=== PATIENT | male | born 1945 | race Caucasian/White ===

== ENCOUNTER → 2017-12-22 08:50 | Outpatient (CLI) | payer MEDICARE, SELFPAY ==
[2017-12-22 11:16] LABS: Creatinine, Serum 0.87 mg/dL (0.70-1.30); EST Glomerular Filtration Rate 92 mL/min (>60); Est Glom Filt Rate - Afr Amer 111 mL/min (>60); T4 Total, Thyroxin 7.7 ug/dL (4.5-12.1); Thyroid Stim Hormone (TSH) 0.61 uIU/mL (0.358-3.74)
== END ==
PROVIDERS: Family Provider Family Medicine; PCP Family Medicine; Visit Provider Internal Medicine Cardiovascular Disease
DX: E03.9 Hypothyroidism, unspecified (principal); I10 Essential (primary) hypertension
CPT/HCPCS: 36415; 82565; 84436; 84443

== ENCOUNTER → 2018-03-16 08:51 | Outpatient (CLI) | payer MEDICARE, SELFPAY ==
[2018-03-16 10:56] LABS: AST(SGOT) 12 U/L (15-37); Alanine Aminotransfer ALT/SGPT 20 U/L (16-61); Albumin, Serum 3.7 g/dL (3.2-5.0); Alkaline Phosphatase 70 U/L (45-117); Bilirubin, Direct 0.17 mg/dL (0.00-0.30); Cholesterol 105 mg/dL (200); Globulin 3.4 g/dL (2.2-4.2); High Density Lipoprotein 37 mg/dL; Protein, Total 7.1 g/dL (6.4-8.2); Triglycerides 67 mg/dL; Very Low Density Lipoprotein 13 mg/dL (5-40)
== END ==
PROVIDERS: Family Provider Family Medicine; PCP Family Medicine; Visit Provider Internal Medicine Cardiovascular Disease
DX: E78.5 Hyperlipidemia, unspecified (principal); Z79.899 Other long term (current) drug therapy
CPT/HCPCS: 36415; 80061; 80076

== ENCOUNTER 2018-05-13 18:52 | Emergency (ER) | payer MEDICARE, SELFPAY ==
[2018-05-13 18:53] VITALS: BP 148/83; PULSE 81; RESP 24; TEMP 36.8; O2SAT 95; BMI 39.5
--- NOTE | 2018-05-13 19:04 | EKG12_ITS ---
Test Reason : SOB Blood Pressure : / mmHG Vent. Rate : 084 BPM Atrial Rate : 078 BPM P-R Int : 000 ms QRS Dur : 084 ms QT Int : 370 ms P-R-T Axes : 000 -40 076 degrees QTc Int : 437 ms Atrial fibrillation Left axis deviation Low voltage QRS Abnormal ECG Confirmed by MARYANN BHATT, CHRISTINA ([id number]), features editor MANPREET PENA ([id number]) on 05/16/2018 3:55:32 PM Referred By: Emanuel Galvez Confirmed By:CHRISTINA WOLF MD
[2018-05-13 19:06] VITALS: BP 177/84; PULSE 88; RESP 15; O2SAT 97
--- NOTE | 2018-05-13 19:06 | ED.VISSUMM ---
- ER Visit Summary Date of Service: 05/13/18 Chief Complaint: [] Cough and shortness of breath History of Present Illness: The patient is a 73 M complaining of shortness of breath for last 2 and half days with a cough with mucus. Positive wheezing. He has been using Coricidin oral medication. No home oxygen. He does smoke. No history of COPD. He is on Lasix for history of CHF remotely. No recent weight gain with fluids. Physical Examination: [] Vital signs reviewed General: Well-nourished well-developed Head: Normocephalic atraumatic Eyes: Pupils equal round and reactive to light extraocular movements intact ENT: TMs clear no hemotympanum no trauma Neck: Nontender full range of motion Cardiovascular: Regular rate rhythm no murmurs normal S1-S2 Respiratory: Diffuse wheezes throughout all lung love with mucoid cough chest nontender Abdomen: Soft nontender nondistended normal bowel sounds no masses Back: Nontender no CVA tenderness Extremities: Nontender active range of motion ?4 extremities no trauma Skin: Normal color no trauma Neuro alert oriented cranial nerves II through XII intact normal strength sensation reflexes Test Results: [] Emergency Department Course and Treatment: [] Lab work and EKG chest x-ray obtained. Patient has significant wheezing given albuterol nebulizer treatment ?3 and Atrovent nebulizer treatment ?1 followed by Solu-Medrol. On reevaluation the patient is symptom-free resting comfortably. Wheezing has resolved. Given albuterol inhaler will be given prednisone for home. I do not think he needs antibiotics. I think he has asthmatic bronchitis. EKG did show A. fib at a rate 84. Troponins negative. CBC chemistries normal. Patient will be discharged. He stated he has been in atrial fibrillation in the past. He has had on and off. He is on carvedilol with rate control. He has not had it recently however. He is on aspirin. He was on xarelto pass prior to cardioversion however he developed diffuse full body bleeding so he is no longer allowed to take anticoagulants other than aspirin. 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 He is rate controlled. Treatment Plan: [] Disposition: [] Impression: [] Asthmatic bronchitis This note was generated with [employer] software. It may contain incorrect words, spelling, and punctuation that were not noted in review of the chart prior to signing ED Disposition - Plan for ED Patient: Disposition: Home or Assisted Living Chief Complaint: Shortness of Breath Instructions: ED Bronchitis Asthmatic Prescriptions: Prednisone [Deltasone] 60 mg PO DAILY #15 tab Referrals: Semaj Wiggins III, MD [Primary Care Provider] -
[2018-05-13 19:25] VITALS: PULSE 84; RESP 12; O2SAT 97
[2018-05-13] MEDS: Ipratropium/Albuterol Sulfate 3 ML AMPUL.NEB INHALATION (19:25)
[2018-05-13] MEDS: Albuterol 2.5 MG/3 ML VIAL.NEB. INHALATION ×3 (19:25→20:05)
[2018-05-13 19:34] LABS: Absolute Lymphocyte Count 1.44 X10^3/ul (0.83-4.51); Absolute Neutrophil Count 2.8 X10^3/uL (2.0-7.7); Basophil# 0.02 X10^3/uL; Basophil% 0.4 % (0-1); Hematocrit 42.2 % (40-54); Hemoglobin 14.4 g/dl (13.0-16.5); Lymphocyte # 1.44 X10^3/ul (4.0); Lymphocyte % 28.8 % (19-41); Mean Corp Hgb Conc 34.1 g/gl (32-36); Mean Corpuscular Hgb 29.9 pg (27.0-32.0); Mean Corpuscular Volume 87.7 fL (80-94); Mean Platelet Vol. 9.9 fl (6.2-12.0); Monocyte# 0.61 X10^3/uL; Monocyte% 12.2 % (0-10); Neutrophil # 2.82 X10^3/uL (2.7-7.7); Neutrophil % 56.4 % (47-70); POSITIVE COUNT NO; POSITIVE DIFFERENTIAL NO; POSITIVE MORPHOLOGY NO; Platelet Count 190 K/mm3 (150-450); RBC Distribution Width CV 13.9 % (11.6-14.6); Red Blood Count 4.81 M/mm3 (4.6-6.2)
[2018-05-13] MEDS: MethylPREDNISolone 125 MG/2 ML Vial IV (19:34)
--- NOTE | 2018-05-13 19:49 | RAD_ITS ---
STUDY: X-RAY CHEST REASON FOR EXAM: Male, 73 years old. Cough and short of breath. TECHNIQUE: Frontal and lateral views of the chest. COMPARISON: 11/22/2017. FINDINGS: The lungs are hyperexpanded. There are coarsened interstitial markings suggestive of moderate chronic fibrosis. No gross focal infiltrates. No gross effusions. Normal size heart. Normal mediastinum and sherri. Normal visualized pulmonary arteries. Normal visualized aortic arch and descending thoracic aorta. Normal visualized thoracic spine. Normal visualized ribs, clavicles, and shoulders. There is no demonstrated abnormality of the visualized soft tissue structures of the upper abdomen. 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 No change or acute abnormality. Electronically Signed: Kulwinder Heath MD at 20:47 EDT , Service support ,
[2018-05-13 20:05] VITALS: PULSE 80; RESP 14
[2018-05-13 20:25] LABS: BUN 14 mg/dL (7-18); Creatinine, Serum 0.83 mg/dL (0.70-1.30); Glucose 109 mg/dL (74-106)
[2018-05-13 20:26] LABS: Anion Gap 6 (5-15); BUN/Creat Ratio 16.8 RATIO (10-20); Calcium,Total 8.7 mg/dL (8.5-10.1); Chloride 105 mmol/L (98-107); EST Glomerular Filtration Rate 96 mL/min (>60); Est Glom Filt Rate - Afr Amer 116 mL/min (>60); Potassium 4.7 mmol/L (3.5-5.1); Sodium Level 136 mmol/L (136-145)
--- NOTE | 2018-05-13 20:32 | ED.DEP ---
ED Disposition - Plan for ED Patient: Disposition: Home or Assisted Living Chief Complaint: Shortness of Breath Instructions: ED Bronchitis Asthmatic Prescriptions: Prednisone [Deltasone] 60 mg PO DAILY #15 tab Referrals: Semaj Wiggins III, MD [Primary Care Provider] -
[2018-05-13 20:39] VITALS: BP 137/78; PULSE 79; RESP 20; O2SAT 97
--- NOTE | 2018-05-14 12:29 | CM.ED ---
ED CALLBACK: Follow-up call attempted x 3. No answer and no voicemail option.
== END 2018-05-13 20:45 | disposition home or self-care (01) ==
PROVIDERS: Emergency Provider Emergency Medicine; Family Provider Family Medicine; PCP Family Medicine
DX: J45.909 Unspecified asthma, uncomplicated (principal); F17.200 Nicotine dependence, unspecified, uncomplicated; I50.9 Heart failure, unspecified; E66.9 Obesity, unspecified; I10 Essential (primary) hypertension; I48.91 Unspecified atrial fibrillation; I25.10 Atherosclerotic heart disease of native coronary artery without angina pectoris; Z79.82 Long term (current) use of aspirin; Z79.899 Other long term (current) drug therapy
CPT/HCPCS: 71046; 80048; 84484; 85025; 93005; 94640; 96374; 99285

== ENCOUNTER → 2018-06-26 15:51 | Outpatient (CLI) | payer MEDICARE, SELFPAY ==
[2018-06-26 18:07] LABS: PSA,Total - Annual Screen 2.04 ng/mL (0.00-4.00)
== END ==
PROVIDERS: Family Provider Family Medicine; PCP Family Medicine; Visit Provider Urology
DX: Z12.5 Encounter for screening for malignant neoplasm of prostate (principal)
CPT/HCPCS: 36415; 84153; G0103

== ENCOUNTER → 2018-08-22 16:53 | Outpatient (CLI) | payer MEDICARE, SELFPAY ==
--- NOTE | 2018-08-22 16:56 | RAD_ITS ---
STUDY: X-RAY CHEST REASON FOR EXAM: Male, 73 years old. Congestive heart failure, shortness of breath TECHNIQUE: PA and lateral chest COMPARISON: 05/13/2018 FINDINGS: No significant change in the pattern of chronic interstitial lung disease compared to imaging of April 2018. Consistent with the presence of underlying COPD/emphysema, with chronic coarsening of the interstitium, flattening of the hemidiaphragms, increased AP diameter of the chest. There is no definitive pulmonary vascular congestion or perihilar edema. There is mild blunting of the right costophrenic angle consistent with presence of a small effusion. There is no dense focal infiltrate or consolidation. No cardiomegaly. Normal mediastinal silhouette, sherri and pleural margins. No acute osseous or upper abdominal process. RAD/Chest PA and Lateral IMPRESSION: Features of COPD/emphysema. Stable. Suspected small right effusion with blunting of the right costophrenic angle. No definitive pattern of volume overload or cardiogenic pulmonary edema. No cardiomegaly. Electronically Signed: Solomon Marshall, at 16:43 EDT Tel , Service support ,
[2018-08-22 17:43] LABS: Anion Gap 6 (5-15); BUN 15 mg/dL (7-18); BUN/Creat Ratio 14.7 RATIO (10-20); Calcium,Total 8.8 mg/dL (8.5-10.1); Chloride 106 mmol/L (98-107); Creatinine, Serum 1.02 mg/dL (0.70-1.30); EST Glomerular Filtration Rate 76 mL/min (>60); Est Glom Filt Rate - Afr Amer 92 mL/min (>60); Glucose 103 mg/dL (74-106); Potassium 4.4 mmol/L (3.5-5.1); Sodium Level 138 mmol/L (136-145)
== END ==
PROVIDERS: Family Provider Family Medicine; PCP Family Medicine; Referring Provider Internal Medicine Cardiovascular Disease; Visit Provider Internal Medicine Cardiovascular Disease
DX: I50.22 Chronic systolic (congestive) heart failure (principal)
CPT/HCPCS: 36415; 71046; 80048; 83880

== ENCOUNTER → 2018-08-27 14:00 | Outpatient (CLI) | payer MEDICARE, SELFPAY ==
--- NOTE | 2018-08-27 14:02 | ECHOCS_ITS ---
Reason For Study: CHF Procedure This was a 2D Doppler, Color Flow transthoracic echocardiogram. The study was technically difficult. Contrast injection was performed. Exam performed in department. Left Ventricle Normal LV size. Segmental dysfunction with preserved ejection fraction (see wall motion). The estimated ejection fraction is 65 %. Diastolic function is indeterminate. Infero-Basal: Hypokinetic. Mid-Inferior: Hypokinetic. Right Ventricle Normal RV size. Normal systolic function. Atria The left atrium is mildly enlarged. The right atrium is mildly enlarged. No doppler evidence for ASD. Mitral Valve There is mild mitral annular calcification. Normal mitral valve. Mild-Moderate (1-2+) mitral valve insufficiency. Tricuspid Valve Normal tricuspid valve. Moderate (2+) tricuspid valve insufficiency. Right ventricular systolic pressure estimated to be 44 mmHg. Aortic Valve Trisinus/trileaflet aortic valve. Mild focal aortic valve thickening. Pulmonic Valve The pulmonic valve is not well visualized. Great Vessels Normal sized aortic root. Pericardium/Pleural No pericardial effusion. Epicardial fat. Medication 22 gauge I.V. with prn adaptor inserted into right arm. Diluted definity 2ml given slow IV push to enhance endocardial definition. MMode/2D Measurements & Calculations LVIDd: 4.6 cm IVSd: 1.1 cm Ao root diam: 3.4 cm LVIDs: 3.0 cm LVPWd: 1.4 cm RVDd: 4.0 cm FS: 35.0 % LAV(MOD-bp): 62.8 ml LA A4 area: 22.9 cm2 RA A4 area: 20.4 cm2 LAV(MOD-bp) Indexed: 28.2 ml/m2 LAV(MOD-sp2): 49.4 ml LAV(MOD-sp4): 65.0 ml Time Measurements MV dec time: 0.18 sec Doppler Measurements & Calculations MV E max maged: 102.3 cm/sec MV V2 max: 102.7 cm/sec MV P1/2t max maged: 103.4 cm/sec MV max P.2 mmHg MV P1/2t: 55.3 msec MV V2 mean: 50.5 cm/sec MV dec slope: 547.0 cm/sec2 MV mean P.2 mmHg MVA(P1/2t): 4.0 cm2 MV V2 VTI: 23.7 cm Ao V2 max: 114.7 cm/sec LV V1 max: 79.6 cm/sec PA V2 max: 82.8 cm/sec Ao max P.3 mmHg LV V1 max P.5 mmHg Ao V2 mean: 74.7 cm/sec LV V1 mean P.1 mmHg Ao mean P.6 mmHg LV V1 mean: 47.8 cm/sec Ao V2 VTI: 20.2 cm LV V1 VTI: 14.8 cm TR max maged: 318.7 cm/sec TR max P.6 mmHg Interpretation Summary The study was technically difficult. Contrast injection was performed. Segmental dysfunction with preserved ejection fraction (see wall motion). The estimated ejection fraction is 65 %. The left atrium is mildly enlarged. The right atrium is mildly enlarged. There is mild mitral annular calcification. Mild-Moderate (1-2+) mitral valve insufficiency. Moderate (2+) tricuspid valve insufficiency. Mild focal aortic valve thickening. Epicardial fat. Right ventricular systolic pressure estimated to be 44 mmHg. Diastolic function is indeterminate. Ordering Physician: Emanuel Galvez Referring Physician: ROCAEL Wiggins M.D. Performed By: Yomi Andrews RCS
== END ==
PROVIDERS: Family Provider Family Medicine; PCP Family Medicine; Referring Provider Internal Medicine Cardiovascular Disease; Visit Provider Internal Medicine Cardiovascular Disease
DX: I25.10 Atherosclerotic heart disease of native coronary artery without angina pectoris (principal); I50.22 Chronic systolic (congestive) heart failure
CPT/HCPCS: 93306; Q9957; A4216; C8929

== ENCOUNTER → 2018-09-17 12:29 | Outpatient (CLI) | payer MEDICARE, SELFPAY ==
[2018-09-17 13:47] LABS: AST(SGOT) 13 U/L (15-37); Alanine Aminotransfer ALT/SGPT 25 U/L (16-61); Albumin, Serum 3.5 g/dL (3.2-5.0); Alkaline Phosphatase 61 U/L (45-117); Bilirubin, Direct 0.23 mg/dL (0.00-0.30); Cholesterol 159 mg/dL (200); Globulin 3.5 g/dL (2.2-4.2); High Density Lipoprotein 41 mg/dL; Triglycerides 119 mg/dL; Very Low Density Lipoprotein 24 mg/dL (5-40)
== END ==
PROVIDERS: Family Provider Family Medicine; PCP Family Medicine; Referring Provider Internal Medicine Cardiovascular Disease; Visit Provider Internal Medicine Cardiovascular Disease
DX: E78.5 Hyperlipidemia, unspecified (principal); Z79.899 Other long term (current) drug therapy
CPT/HCPCS: 36415; 80061; 80076

== ENCOUNTER 2018-11-18 00:42 | Emergency (ER) | payer MEDICARE, SELFPAY ==
[2018-10-12 14:04] VITALS: BMI 39.4
[2018-11-18 00:44] VITALS: BP 165/75; PULSE 107; RESP 22; TEMP 36.6; O2SAT 98; BMI 28.5
--- NOTE | 2018-11-18 00:58 | CT_ITS ---
STUDY: CT ABDOMEN AND PELVIS WITHOUT CONTRAST REASON FOR EXAM: Male, 73 years old. Hematuria. RADIATION DOSAGE (If Supplied By Facility): CTDIvol = ( 20.61 ) mGy, DLP = ( 983.51 ) mGycm TECHNIQUE: Transaxial images were obtained from the dome of the diaphragm to the symphysis pubis without oral contrast, and without intravenous contrast. Sagittal and coronal images were reconstructed. Individualized dose optimization techniques were used for this CT. COMPARISON: None. FINDINGS: The visualized lung bases are unremarkable. The visualized portions of the heart are within normal limits. New decrease attenuation lesions are seen in the liver are located in segments #2 and segment #5 measuring respectively 2.7 cm in 3 cm most likely represent cysts. Normal gallbladder and extrahepatic biliary system. Normal spleen. Normal pancreas. There is a small, circumscribed, smooth, low attenuation left adrenal mass, consistent with an adrenal adenoma. Normal right adrenal gland. Normal right kidney. Normal left kidney. Normal visualized stomach. Normal small intestine. Normal colon. There are surgical clips in the region of the appendix consistent with a prior appendectomy. Normal abdominal aorta. Normal inferior vena cava. Normal retroperitoneum. There is thickening of urinary bladder wall on the right side measuring approximately 1.4 cm in maximum thickness may represent a neoplastic process. There is enlargement of the prostate gland. There is a right-sided inguinal hernia containing adipose tissue. There are diffuse degenerative changes of the visualized lumbar spine. CT/Abdomen/Pelvis without Cont IMPRESSION: There is thickening of urinary bladder wall on the right side measuring approximately 1.4 cm in maximum thickness may represent a neoplastic process. Electronically Signed: Andrea Barreto MD at 2:23 EST Tel , Service support ,
[2018-11-18 01:21] LABS: Absolute Lymphocyte Count 1.06 X10^3/ul (0.83-4.51); Absolute Neutrophil Count 11.7 X10^3/uL (2.0-7.7); Basophil# 0.02 X10^3/uL; Basophil% 0.1 % (0-1); Eosinophil# 0.08 X10^3/uL; Eosinophils% 0.6 % (0-5); Hematocrit 44.7 % (40-54); Hemoglobin 15.5 g/dl (13.0-16.5); Lymphocyte # 1.06 X10^3/ul (4.0); Lymphocyte % 7.6 % (19-41); Mean Corp Hgb Conc 34.7 g/gl (32-36); Mean Corpuscular Hgb 31.4 pg (27.0-32.0); Mean Corpuscular Volume 90.5 fL (80-94); Monocyte# 1.09 X10^3/uL; Monocyte% 7.8 % (0-10); Neutrophil # 11.71 X10^3/uL (2.7-7.7); Neutrophil % 83.8 % (47-70); POSITIVE COUNT NO; POSITIVE DIFFERENTIAL NO; POSITIVE MORPHOLOGY NO; Platelet Count 221 K/mm3 (150-450); RBC Distribution Width CV 14.2 % (11.6-14.6); RBC Distribution Width SD 46.4 fl (35.1-43.9); Red Blood Count 4.94 M/mm3 (4.6-6.2)
[2018-11-18 01:33] LABS: Anion Gap 7 (5-15); BUN 38 mg/dL (7-18); BUN/Creat Ratio 24.8 RATIO (10-20); Calcium,Total 8.7 mg/dL (8.5-10.1); Chloride 101 mmol/L (98-107); Creatinine, Serum 1.53 mg/dL (0.70-1.30); EST Glomerular Filtration Rate 48 mL/min (>60); Est Glom Filt Rate - Afr Amer 58 mL/min (>60); Glucose 135 mg/dL (74-106); Potassium 3.9 mmol/L (3.5-5.1); Sodium Level 137 mmol/L (136-145)
[2018-11-18 01:35] LABS: Mucous, Urine 0 SEEN /hpf (<or=2+)
[2018-11-18 01:36] LABS: Color, Urine Yellow (Yellow); Glucose, Dipstick Normal (Normal); Ketone-Dipstick Negative (Negative); Leukocyte Esterase-Dipstick 500 /ul (Negative); Nitrite-Dipstick Positive (Negative); Occult Blood-Urine 250 /ul (Negative); Protein-Dipstick 30 mg/dl (Negative); Specific Gravity, Urine 1.015 (1.002-1.030); Urine Bilirubin Dipstick Negative (Negative); Urine Clarity Sl. Cloudy (Clear); Urine Urobilinogen Normal (Normal)
[2018-11-18 02:03] LABS: Bacteria 2+ /hpf (None Seen); Red Blood Cells-Urine > 100 SEEN /hpf (0-5); Squamous Epithelial Cells - UA 0-5 SEEN /hpf (0-5); White Blood Cells >100 SEEN /hpf (0-5)
[2018-11-18] MEDS: Ceftriaxone 1 GM/50 ML BAG IV (03:19)
[2018-11-18 03:21] VITALS: BP 128/69; PULSE 90; RESP 18; O2SAT 97
--- NOTE | 2018-11-18 03:44 | ED.DCSUM_ITS ---
- ER Visit Summary Date of Service: 11/18/18 Chief Complaint: Dysuria and frequency History of Present Illness: The patient is a [address] Hunter and Dr. Semaj Wiggins iii. He reports that he has dysuria and frequency that began earlier today. States that he developed hematuria tonight. He has had chills, but no fever. He had a nonproductive cough for the past 2 months. He denies any abdominal pain or flank pain. Physical Examination: Vitals: Stable. Afebrile. General: Well-nourished and well-developed. Head: Normocephalic atraumatic. Neck: Supple, no lymphadenopathy. No JVD. Nontender. Cardiovascular: Irregularly irregular rhythm. No murmurs. Respiratory: No respiratory distress. Clear to auscultation bilaterally. Abdominal: Soft, nontender, nondistended, normal bowel sounds. No guarding, rebound, or peritoneal signs. No bladder distention. Back: Nontender. Extremities: Nontender, no edema. Skin: Normal color, no rash. Neurologic: Alert and oriented ?3. Cranial nerves II through XII are intact. Normal strength and sensation. Psych: Normal affect. Test Results: EKG is A. fib with PVCs in the 90s. No significant change since April of this year. CBC is more for a white count of 14.0 with 84 segmented neutrophils and 8 lymphocytes. Chem-7 is more for glucose 135, BUN 38, creatinine 1.53. UA shows an obvious infection. This was sent for culture. CT flank shows the wall of the bladder to be thickened to 1.4 cm with question of a neoplasm there. Also shows an enlarged prostate. Emergency Department Course and Treatment: Patient is resting comfortably and feels well. He is given a dose of ceftriaxone IV. He would like to go home. Treatment Plan: Patient will be discharged on Cipro. Instructed to follow-up with Dr. Hunter in 1 week for further evaluation of the thickened bladder wall and his enlarged prostate. Return to the emergency department for any worsening symptoms. Disposition: To home in improved and stable condition. Impression: 1 1. UTI. 2. Enlarged prostate. This note was generated with [employer] software. It may contain incorrect words, spelling, and punctuation that were not noted in review of the chart prior to signing ED Disposition - Plan for ED Patient: Disposition: Home or Assisted Living Chief Complaint: Complaint Instructions: ED UTI Cystitis Male Prescriptions: Ciprofloxacin [Cipro] 500 mg PO BID #14 tablet Referrals: Charanjit Hunter MD [STAFF PHYSICIAN] - 1 Week
[2018-11-18 04:01] VITALS: BP 137/94; PULSE 89; O2SAT 96
== END 2018-11-18 04:04 | disposition home or self-care (01) ==
PROVIDERS: Emergency Provider Emergency Medicine; Family Provider Family Medicine; PCP Family Medicine
DX: N39.0 Urinary tract infection, site not specified (principal); N40.0 Benign prostatic hyperplasia without lower urinary tract symptoms; I25.10 Atherosclerotic heart disease of native coronary artery without angina pectoris; I10 Essential (primary) hypertension; Z87.442 Personal history of urinary calculi; Z72.0 Tobacco use; Z79.82 Long term (current) use of aspirin; Z79.899 Other long term (current) drug therapy
CPT/HCPCS: 74176; 80048; 81001; 85025; 87086; 87088; 87186; 93005; 96365; 99284; A4216

== ENCOUNTER → 2018-12-03 17:02 | Outpatient (CLI) | payer MEDICARE, SELFPAY ==
[2018-11-18 00:44] VITALS: BMI 28.5
== END ==
PROVIDERS: Family Provider Family Medicine; PCP Family Medicine; Referring Provider Urology; Visit Provider Urology
DX: R31.9 Hematuria, unspecified (principal)
CPT/HCPCS: 87086; 87088

== ENCOUNTER 2018-12-19 10:08 | Day surgery (SDC) | payer MEDICARE, SELFPAY ==
[2018-12-14 15:41] LABS: Hematocrit 44.2 % (40-54); Hemoglobin 15.4 g/dl (13.0-16.5); Mean Corp Hgb Conc 34.8 g/gl (32-36); Mean Corpuscular Volume 88.9 fL (80-94); Mean Platelet Vol. 10.5 fl (6.2-12.0); Platelet Count 218 K/mm3 (150-450); RBC Distribution Width CV 13.8 % (11.6-14.6); RBC Distribution Width SD 44.7 fl (35.1-43.9); Red Blood Count 4.97 M/mm3 (4.6-6.2); White Blood Count 5.1 K/mm3 (4.4-11.0)
[2018-12-14 15:43] LABS: Scan Indicated on CBC? Y/N NO
[2018-12-14 15:52] LABS: Partial Thromboplast Time 29.4 Seconds (24.1-36.2); Prothrombin Time (Protime)PT. 13.2 SECONDS (11.7-14.9)
[2018-12-14 16:22] LABS: AST(SGOT) 28 U/L (15-37); Alanine Aminotransfer ALT/SGPT 27 U/L (16-61); Albumin, Serum 3.7 g/dL (3.2-5.0); Alkaline Phosphatase 66 U/L (45-117); Anion Gap 9 (5-15); BUN 30 mg/dL (7-18); BUN/Creat Ratio 20.5 RATIO (10-20); Bilirubin, Direct 0.32 mg/dL (0.00-0.30); Calcium,Total 8.7 mg/dL (8.5-10.1); Chloride 100 mmol/L (98-107); Creatinine, Serum 1.46 mg/dL (0.70-1.30); EST Glomerular Filtration Rate 50 mL/min (>60); Est Glom Filt Rate - Afr Amer 61 mL/min (>60); Globulin 3.7 g/dL (2.2-4.2); Glucose 90 mg/dL (74-106); Protein, Total 7.4 g/dL (6.4-8.2); Sodium Level 137 mmol/L (136-145)
[2018-12-19] VITALS (11 sets, daily range): BP systolic 96–121; BP diastolic 46–85; PULSE 66–83; RESP 16–17; TEMP 36.1–36.4; O2SAT 93–100; BMI 36.4
[2018-12-19 10:52] LABS: Potassium 4.3 mmol/L (3.5-5.1)
--- NOTE | 2018-12-19 12:20 | PROS_PTH ---
PATIENT: BUTCH DO [place] [facility] [place][id number] AGE/SX: 73/M ROOM: RE12/19/[address]: Dr. Charanjit Hunter MD : [id number] BED: DIS: 12/20/2018 SPEC #: [id number] RECD: 12/20/18 07:12 STATUS: CARISSA REAdam #: [id number] DAWIT: 12/19/18 12:[address]: Charanjit Hunter DEPT: SURGICAL PATHOLOGY RECD BY: Donovan Vazquez ENTERED: 12/20/18 08:30 SP TYPE: TURP OTHR DR: Dr. Semaj Wiggins III, MD Tissues: Prostate, NOS Procedures: Surgery Specimen Level IV HEADER OPERATION: Cystoscopy, transurethral resection of prostate, [facility] PRE-OP DIAGNOSIS: Benign prostatic hyperplasia with lower urinary tract symptoms; gross hematuria; orchitis TISSUE SUBMITTED: Prostate tissue MICROSCOPIC DIAGNOSIS Prostate, transurethral resection: Benign stromal hyperplasia. Benign glandular hyperplasia with focal squamous metaplasia. Mild chronic inflammation. AM:sally 12/21/18 MICROSCOPIC DESCRIPTION Slides are reviewed. GROSS DESCRIPTION Received is one container labeled with the patient's name and designated prostate tissue. The specimen consists of multiple irregular fragments of pink-manley, rubbery, soft tissue that in aggregate weigh 28.1 gm and measure in aggregate 8 x 8 x 1.2 cm. Hand Molder portions are submitted in 12 cassettes. / AM:sally 12/20/18 TC:3 CPT: 61890
[2018-12-19] MEDS: Cefazolin 2 GM in 0.9% Normal Saline 100 ML IV (12:40)
--- NOTE | 2018-12-19 14:13 | PCM.OPRPT ---
Report of Operation Date of Procedure: 12/19/18 Pre-Operative Diagnosis: BPH with obstruction Post-Operative Diagnosis: Same Surgery/Procedure Performed:: Transurethral resection of the prostate Description of Surgical Findings:: 73-year-old male with a very large prostate been having difficulty with urination emptying his bladder he is on medical therapy at this point recommend we did proceed with a transurethral resection of the prostate. 73-year-old male taken back to the operating room at the smooth induction of general anesthesia he was placed supine on the table penis and testicles are prepped and draped in usual sterile fashion went into the bladder with a 26 Kitt[place] continuous flow resectoscope entire length the urethra is normal the prostate was very enlarged with bilateral hypertrophy small median lobe I then resected the bladder neck and median lobe down I then resected the right lobe of the prostate resected the left lobe of the prostate Ellik out the chips switched over to the button smooth out the resection from the mid prostate to the All slowly a nice wide open channel that a flow test had a good flow took about an hour to resect the entire prostate at the end of the case had a wide open channel from the sphincter into the bladder neck. Obtain hemostasis placed a 22 Kittitian three-way catheter put on continuous bladder irrigation and the patient anesthetic is currently being reversed. Type of Anesthesia:: General Drains: [address] - Admit VTE Documentation VTE Present on Admission: No VTE Mechan Device Prophylaxis: SCD's
--- NOTE | 2018-12-19 16:14 | DCINST_ITS ---
Discharge Diet: Light diet - advance as tolerated Discharge Activity: May not drive while taking narcotic pain medications., May Shower May resume sexual activity in: 6 weeks Call your doctor if your incision/area has: Continuous Slow Oozing, Sudden Increased Bleeding, Increased Pain/ Swelling, Increased Redness, Foul Smelling Discharge, Swelling at the incision site Call your doctor if you observe: Fever of 101 or Higher Suture Line Care: Avoid Pulling/Pushing, Avoid Pinching/Bending Instructions: Transurethral Resection of the Prostate (TURP): Home Recovery Allergies/Adverse Reactions: Allergies lisinopril Adverse Reaction (Verified 12/12/18 15:06) Unknown Penicillins Adverse Reaction (Verified 12/12/18 15:06) Unknown phenazopyridine HCl [From Pyridium] Adverse Reaction (Verified 12/12/18 15:06) Unknown Medications to take at Discharge Finasteride [Proscar] 5 mg PO DAILY 11/22/17 nitroglycerin 0.4 mg sublingual tablet 0.4 mg SUBLINGUAL Q5M PRN #90 tab 04/09/18 furosemide 40 mg tablet 40 mg PO BIDLX #180 tab 07/18/18 aspirin 325 mg tablet 325 mg PO DAILY 08/22/18 metolazone 2.5 mg tablet 2.5 mg PO Q OTHER DAY 10/12/18 carvedilol 12.5 mg tablet 12.5 mg PO BID #180 tab 10/15/18 losartan 50 mg tablet 50 mg PO DAILY #90 tab 12/04/18 Potassium Chloride [Klor-Con M20] 20 meq PO DAILY 12/12/18 Ciprofloxacin [Cipro] 500 mg PO BID #14 tablet 12/19/18 Docusate Sodium [Colace] 100 mg PO BID #20 capsule 12/19/18 Ibuprofen 600 mg PO Q6H PRN PRN #20 tablet 12/19/18 Orders to be completed after discharge: Partial Thromboplast Time Time Frame: 12/12/18, Location: Laboratory Basic Metabolic Profile (BMP) Time Frame: 12/12/18, Location: Laboratory CBC-Complete Blood Cnt No Diff Time Frame: 12/12/18, Location: Laboratory Liver Profile Time Frame: 12/12/18, Location: Laboratory Prothrombin Time w/INR Time Frame: 12/12/18, Location: Laboratory Primary Care Physician: Semaj Wiggins III, MD [Primary Care Provider] - Test Results: Test results from this visit will be discussed in further detail at your follow- up appointment, if applicable. Please Follow Up With: Charanjit Hunter MD When: in 2 weeks, please call to make an appointment.
[2018-12-19] MEDS: 0.9% Normal Saline 1,000 ML 125 ML IV (18:39)
[2018-12-19] MEDS: Furosemide 40 MG Tablet PO (18:39)
[2018-12-19] MEDS: Docusate Sodium 100 MG Capsule PO (21:47)
[2018-12-19] MEDS: Ciprofloxacin 500 MG Tablet PO (21:47)
[2018-12-19] MEDS: Carvedilol 12.5 MG Tablet PO (21:48)
[2018-12-20] MEDS: 0.9% Normal Saline 1,000 ML 125 ML IV (01:52)
[2018-12-20 01:57] VITALS: BP 103/56; PULSE 72; RESP 16; TEMP 36.4; O2SAT 95
[2018-12-20 05:58] LABS: Hemoglobin 12.4 g/dl (13.0-16.5); Mean Corp Hgb Conc 34.4 g/gl (32-36); Mean Corpuscular Hgb 31.3 pg (27.0-32.0); Mean Corpuscular Volume 90.9 fL (80-94); Mean Platelet Vol. 9.8 fl (6.2-12.0); Platelet Count 191 K/mm3 (150-450); RBC Distribution Width CV 13.3 % (11.6-14.6); RBC Distribution Width SD 43.7 fl (35.1-43.9); Red Blood Count 3.96 M/mm3 (4.6-6.2); White Blood Count 10.5 K/mm3 (4.4-11.0)
[2018-12-20 06:07] LABS: Anion Gap 11 (5-15); BUN 28 mg/dL (7-18); BUN/Creat Ratio 21.7 RATIO (10-20); Calcium,Total 7.8 mg/dL (8.5-10.1); Chloride 104 mmol/L (98-107); Creatinine, Serum 1.29 mg/dL (0.70-1.30); EST Glomerular Filtration Rate 58 mL/min (>60); Est Glom Filt Rate - Afr Amer 70 mL/min (>60); Estimated Creatinine Clearance 48.39 ml/min; Glucose 152 mg/dL (74-106); Potassium 3.8 mmol/L (3.5-5.1); Scan Indicated on CBC? Y/N NO; Sodium Level 138 mmol/L (136-145)
[2018-12-20 07:35] VITALS: O2SAT 97
[2018-12-20 08:30] VITALS: BP 118/55; PULSE 79; RESP 16; TEMP 36.3; O2SAT 98
--- NOTE | 2018-12-20 08:47 | CASEMGMT ---
Pt informed nurse at preadmission testing he has LW/POA, but is unable to bring the forms in. YUVAL German, TRANSMITTER TESTER
[2018-12-20] MEDS: Furosemide 40 MG Tablet PO (09:39)
[2018-12-20] MEDS: Ciprofloxacin 500 MG Tablet PO (09:39)
[2018-12-20] MEDS: Losartan Potassium 50 MG Tablet PO (09:39)
[2018-12-20] MEDS: Carvedilol 12.5 MG Tablet PO (09:39)
[2018-12-20] MEDS: Metolazone 2.5 MG Tablet PO (09:40)
[2018-12-20] MEDS: Pantoprazole Sodium 40 MG Tablet PO (09:40)
[2018-12-20 14:45] VITALS: BP 115/60; PULSE 76; RESP 16; TEMP 36.3; O2SAT 99
--- OUTSIDE RECORDS SUMMARY | 2019-02-20 06:53 | XMS RPT_ITS ---
:1945 Author Organization OHIP Support Name Relationship Address Phone ERNESTINAMERES Unavailable [address] + [place] [address] SOPHIE, BHAVNA Unavailable [address] + [place] [address] R Unavailable Unavailable Unavailable ERNESTINA, MARLENE Unavailable [address] + [place] [address] SOPHIE, BHAVNA Unavailable Unavailable + R Unavailable Unavailable Unavailable ERNESTINA, MARLENE Unavailable [address] + [place] [address] SOPHIE, BHAVNA Unavailable . + ., [place] . R Unavailable Unavailable Unavailable ERNESTINA, MARLENE Unavailable [address] + [place] [address] SOPHIE, BHAVNA Unavailable . + ., [place] . R Unavailable Unavailable Unavailable ERNESTINA, MARLENE Unavailable [address] + [place] [address] SOPHIE, BHAVNA Unavailable Unavailable + R Unavailable Unavailable Unavailable ERNESTINA, MARLENE Unavailable [address] + [place] [address] SOPHIE, BHAVNA Unavailable Unavailable + [place] [address] R Unavailable Unavailable Unavailable ERNESTINA, MARLENE Unavailable [address] + [place] [address] SOPHIE, BHAVNA Unavailable Unavailable + R Unavailable Unavailable Unavailable ERNESTINA, MARLENE Unavailable [address] + [place] [address] SOPHIE, BHAVNA Unavailable Unavailable + [place] [address] R Unavailable Unavailable Unavailable ERNESTINA, MARLENE Unavailable [address] + [place] [address] R Unavailable Unavailable Unavailable ERNESTINA, MARLENE Unavailable [address] + [place] [address] R Unavailable Unavailable Unavailable ERNESTINA, MARLENE Unavailable [address] [phone] [place] [address] R Unavailable Unavailable Unavailable ERNESTINA, MARLENE Unavailable [address] [phone] [place] [address] R Unavailable Unavailable Unavailable ERNESTINA, MARLENE Unavailable [address] [phone] [place] [address] R Unavailable Unavailable Unavailable ERNESTINA, MARLENE Unavailable [address] [phone] [place] [address] R Unavailable Unavailable Unavailable Care Team Providers Name Role Phone CEBUL III, SEMAJ A Referring Unavailable CEBUL III, SEMAJ A Attending Unavailable CEBUL III, SEMAJ A Referring Unavailable CEBUL III, SEMAJ A Referring Unavailable Cebul III, Semaj Primary Care Unavailable Roland Cole Attending Unavailable ElsaCharanjit Attending Unavailable ElsaCharanjit Referring Unavailable Cebul III, Semaj Primary Care Unavailable MoodEmanuel salvador Attending Unavailable MoodisEmanuel kate Referring Unavailable Cebul III, Semaj Primary Care Unavailable Alysa Tanner Attending Unavailable MoodEmanuel salvador Attending Unavailable Cebul III, Semaj Referring Unavailable Cebul III, Semaj Primary Care Unavailable ElsaCharanjit Attending Unavailable ElsaCharanjit Referring Unavailable Cebul III, Semaj Primary Care Unavailable Cebul III, Semaj Primary Care Unavailable Pipo Kamara Attending Unavailable Emanuel Galvez Referring Unavailable ElsaCharanjit Attending Unavailable ElsaCharanjit Referring Unavailable Cebul III, Semaj Primary Care Unavailable Emanuel Galvez Attending Unavailable Cebul III, Semaj Referring Unavailable Emanuel Galvez Attending Unavailable Emanuel Galvez Referring Unavailable Cebul III, Semaj Primary Care Unavailable Emanuel Galvez Attending Unavailable Emanuel Galvez Referring Unavailable Cebul III, Semaj Primary Care Unavailable Emanuel Galvez Attending Unavailable Emanuel Galvez Referring Unavailable Cebul III, Semaj Primary Care Unavailable Emanuel Galvez Attending Unavailable Emanuel Galvez Referring Unavailable Emanuel Galvez Attending Unavailable Cebul IIISemaj Referring Unavailable PROBLEMS PROBLEMS DATE TYPE CONDITION / CODE ATTENDING STATUS SOURCE 08/22/2018 Unknown I50.22 - Chronic Emanuel Galvez Active [place] systolic (congestive) [facility] heart failure / Hospital I50.22(ICD-10) Repository 08/22/2018 Unknown I48.0 - Paroxysmal Emanuel Galvez Active [facility] atrial fibrillation / Community I48.0(ICD-10) Hospital Repository 08/22/2018 Unknown 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 / I25.10(ICD-10) 03/16/2018 Unknown E78.5 - Emanuel Galvez Active [place] Hyperlipidemia, [facility] unspecified / Hospital E78.5(ICD-10) Repository 03/16/2018 Unknown Z79.899 - Other long Emanuel Galvez Active [facility] term (current) drug [facility] therapy / Hospital Z79.899(ICD-10) Repository 02/27/2018 Active Encounter for NA Active [facility] screening for [facility] malignant neoplasm of [place] colon / Repository Z12.11(ICD-10) 10/03/2005 Active Essential (primary) NA Active [place] hypertension / [facility] I10(ICD-10) [place] Repository 02/12/2018 Active Other problems NA Active [facility] related to lifestyle [facility] / Z72.89(ICD-10) [place] Repository 02/12/2018 Active Mixed hyperlipidemia NA Active [facility] / E78.2(ICD-10) [facility] [place] Repository 02/12/2018 Active Elevated prostate NA Active [facility] specific antigen [facility] (PSA) / [place] R97.20(ICD-10) Repository PROCEDURES PROCEDURES No Procedure Records FoundRESULTS RESULTS CBC-COMPLETE BLOOD CNT Collected: 12/20/2018 Status: F Source: [place] NO DIFF 5:38 AM [facility] HOSPITAL REPOSITORY TYPE CODE TESTS RESULT OUT OF RANGE REFERENCE UNITS LAB L100.1000 4.4-11.0 K/mm3 Normal WBC 10.5 LAB L100.1200 4.6-6.2 M/mm3 Low RBC 3.96 LAB L100.1300 13.0-16.5 g/dl Low HGB 12.4 LAB L100.1400 40-54 % Low HCT 36.0 LAB L100.1500 80-94 fL Normal MCV 90.9 LAB L100.1600 27.0-32.0 pg Normal MCH 31.3 LAB L100.1700 32-36 g/gl Normal MCHC 34.4 LAB L100.1810 11.6-14.6 % Normal RDW CV 13.3 LAB L100.1820 35.1-43.9 fl Normal RDW SD 43.7 LAB L100.1900 150-450 K/mm3 Normal PLT 191 LAB L100.2000 6.2-12.0 fl Normal MPV 9.8 Performed By: #### L100.0500 #### [facility] [address] [place], [address] BASIC METABOLIC Collected: 12/20/2018 Status: F Source: [place] PROFILE (BMP) 5:38 AM [facility] REPOSITORY TYPE CODE TESTS RESULT OUT OF RANGE REFERENCE UNITS LAB L501.0100 74-106 mg/dL High GLU 152 Result Comment: Fasting Glucose result greater than or equal to 126 mg/dL suggests DIABETES MELLITUS per A.D.A. criteria. Please note revised GLUCOSE reference range effective 2017. LAB L501.1000 7-18 mg/dL High BUN 28 LAB L501.1100 0.70-1.30 mg/dL Normal CREAT,SERUM 1.29 Result Comment: The validity of the calculated GFR AND GFRAA in patients over 70 years has not been determined. Clinical correlation is essential. LAB L501.1110 >60 mL/min Low EST GFR 58 Result Comment: Non- GFR Calc LAB L501.1115 >60 mL/min Normal EST GFR - AA 70 Result Comment: GFR Calc LAB L501.1255 ml/min Normal Estimated CRCL 48.39 LAB L501.1300 10-20 RATIO High BUN/CRE 21.7 LAB L501.2200 8.5-10 mg/dL Low .1 CA 7.8 LAB L501.5300 136-14 mmol/L Normal 5 NA 138 LAB L501.5600 3.5-5. mmol/L Normal 1 K 3.8 LAB L501.5900 98-107 mmol/L Normal CL 104 LAB L501.6100 21.0-3 mmol/L Normal 2.0 CO2 23.0 LAB L501.6200 5-15 Normal GAP 11 Performed By: #### L500.2500 #### [facility] [address] [place], [address] DISCHARGE INSTRUCTION Observed: 12/19/2018 Status: F Source: [place] 4:14 PM [facility] REPOSITORY [facility] Medical Records Department [address] [place] [address] Instructions for Home/Discharge Instructions 12/19/18 1611 MR#: [id number] Acct: [id number] Name: BUTCH DO Rep #: [id number] : 1945 73 From: Charanjit Hunter MD PCP: Semaj Wiggins III, MD Status: REG HIC Discharge Diet: Light diet - advance as tolerated Discharge Activity: May not drive while taking narcotic pain medications., May Shower May resume sexual activity in: 6 weeks Call your doctor if your incision/area has: Continuous Slow Oozing, Sudden Increased Bleeding, Increased Pain/ Swelling, Increased Redness, Foul Smelling Discharge, Swelling at the incision site Call your doctor if you observe: Fever of 101 or Higher Suture Line Care: Avoid Pulling/Pushing, Avoid Pinching/Bending Instructions: Transurethral Resection of the Prostate (TURP): Home Recovery Allergies/Adverse Reactions: Allergies lisinopril Adverse Reaction (Verified 12/12/18 15:06) Unknown Penicillins Adverse Reaction (Verified 12/12/18 15:06) Unknown phenazopyridine HCl [From Pyridium] Adverse Reaction (Verified 12/12/18 15:06) Unknown Medications to take at Discharge Finasteride [Proscar] 5 mg PO DAILY 11/22/17 nitroglycerin 0.4 mg sublingual tablet 0.4 mg SUBLINGUAL Q5M PRN #90 tab 04/09/18 furosemide 40 mg tablet 40 mg PO BIDLX #180 tab 07/18/18 aspirin 325 mg tablet 325 mg PO DAILY 08/22/18 metolazone 2.5 mg tablet 2.5 mg PO Q OTHER DAY 10/12/18 carvedilol 12.5 mg tablet 12.5 mg PO BID #180 tab 10/15/18 losartan 50 mg tablet 50 mg PO DAILY #90 tab 12/04/18 Potassium Chloride [Klor-Con M20] 20 meq PO DAILY 12/12/18 Ciprofloxacin [Cipro] 500 mg PO BID #14 tablet 12/19/18 Docusate Sodium [Colace] 100 mg PO BID #20 capsule 12/19/18 Ibuprofen 600 mg PO Q6H PRN PRN #20 tablet 12/19/18 Orders to be completed after discharge: Partial Thromboplast Time Time Frame: 12/12/18, Location: Laboratory Basic Metabolic Profile (BMP) Time Frame: 12/12/18, Location: Laboratory CBC-Complete Blood Cnt No Diff Time Frame: 12/12/18, Location: Laboratory Liver Profile Time Frame: 12/12/18, Location: Laboratory Prothrombin Time w/INR Time Frame: 12/12/18, Location: Laboratory Primary Care Physician: Semaj Wiggins III, MD [Primary Care Provider] - Test Results: Test results from this visit will be discussed in further detail at your follow-up appointment, if applicable. Please Follow Up With: Charanjit Hunter MD When: in 2 weeks, please call to make an appointment. 12/19/18 1614 <Electronically signed by Charanjit Hunter MD> Date Charanjit Hunter MD CC: Semaj Wiggins III, MD Signed OPERATIVE REPORT Observed: 12/19/2018 Status: F Source: [place] 2:15 PM [facility] Medical Records Department [address] [place] [address] Operative Report 12/19/18 1413 MR#: [id number] Acct: [id number] Name: BUTCH DO Rep #: [id number] : 1945 73 From: Charanjit Hunter MD PCP: Semaj Wiggins III, MD Status: REG [facility] Y Location: [place] [address] Report of Operation Date of Procedure: 12/19/18 Pre-Operative Diagnosis: BPH with obstruction Post-Operative Diagnosis: Same Surgery/Procedure Performed:: Transurethral resection of the prostate Description of Surgical Findings:: 73-year-old male with a very large prostate been having difficulty with urination emptying his bladder he is on medical therapy at this point recommend we did proceed with a transurethral resection of the prostate. 73-year-old male taken back to the operating room at the smooth induction of general anesthesia he was placed supine on the table penis and testicles are prepped and draped in usual sterile fashion went into the bladder with a 26 Ecuadorean continuous flow resectoscope entire length the urethra is normal the prostate was very enlarged with bilateral hypertrophy small median lobe I then resected the bladder neck and median lobe down I then resected the right lobe of the prostate resected the left lobe of the prostate Ellik out the chips switched over to the button smooth out the resection from the mid prostate to the All slowly a nice wide open channel that a flow test had a good flow took about an hour to resect the entire prostate at the end of the case had a wide open channel from the sphincter into the bladder neck. Obtain hemostasis placed a 22 Ecuadorean three-way catheter put on continuous bladder irrigation and the patient anesthetic is currently being reversed. Type of Anesthesia:: General Drains: [address] - Admit VTE Documentation VTE Present on Admission: No VTE Mechan Device Prophylaxis: SCD's 12/19/18 1415 <Electronically signed by Charanjit Hunter MD> Date Charanjit Hunter MD CC: Semaj Wiggins III, MD; Charanjit Hunter MD Signed PROSTATE, TUR Observed: 12/19/2018 Status: F Source: [place] 12:20 PM [facility] REPOSITORY Patient: BUTCH DO : 1945 (73/M) Acct Num: [id number] Phys: Elsa HBATT,Charanjit Hernandez Unit Num: [id number] Loc: [facility] Specimen: [id number] Received: 12/20/18711 Spec Type: TURP TISSUES 1 TISSUES: Prostate, NOS GROSS DESCRIPTION Received is one container labeled with the patient's name and designated prostate tissue. The specimen consists of multiple irregular fragments of pink-manley, rubbery, soft tissue that in aggregate weigh 28.1 gm and measure in aggregate 8 x 8 x 1.2 cm. Manager Category portions are submitted in 12 cassettes. / AM:sally 12/20/18 TC:3 CPT: 83102 HEADER OPERATION: Cystoscopy, transurethral resection of prostate, [employer] PRE-OP DIAGNOSIS: Benign prostatic hyperplasia with lower urinary tract symptoms; gross hematuria; orchitis TISSUE SUBMITTED: Prostate tissue MICROSCOPIC DESCRIPTION Slides are reviewed. MICROSCOPIC DIAGNOSIS Prostate, transurethral resection: Benign stromal hyperplasia. Benign glandular hyperplasia with focal squamous metaplasia. Mild chronic inflammation. AM:sally 12/21/18 Signed Tim George, 12/21/18 <signature on file> Performed By: #### PPROS #### [facility] [address] [place], [address] POTASSIUM Collected: 12/19/2018 Status: F Source: [place] 10:22 AM [facility] REPOSITORY Order Comment: Reason for Laboratory Test PRE-OP TYPE CODE TESTS RESULT OUT OF RANGE REFERENCE UNITS LAB L501.5600 3.5-5.1 mmol/L Normal K 4.3 Performed By: #### L501.5600 #### [facility] [address] [place], [address] CBC-COMPLETE BLOOD CNT Collected: 12/14/2018 Status: F Source: [place] NO DIFF 3:23 PM [facility] REPOSITORY TYPE CODE TESTS RESULT OUT OF RANGE REFERENCE UNITS LAB L100.1000 4.4-11.0 K/mm3 Normal WBC 5.1 LAB L100.1200 4.6-6.2 M/mm3 Normal RBC 4.97 LAB L100.1300 13.0-16.5 g/dl Normal HGB 15.4 LAB L100.1400 40-54 % Normal HCT 44.2 LAB L100.1500 80-94 fL Normal MCV 88.9 LAB L100.1600 27.0-32.0 pg Normal MCH 31.0 LAB L100.1700 32-36 g/gl Normal MCHC 34.8 LAB L100.1810 11.6-14.6 % Normal RDW CV 13.8 LAB L100.1820 35.1-43.9 fl High RDW SD 44.7 LAB L100.1900 150-450 K/mm3 Normal PLT 218 LAB L100.2000 6.2-12.0 fl Normal MPV 10.5 Performed By: #### L100.0500 #### [facility] [address] [place], [address] PROTHROMBIN TIME W/INR Collected: 12/14/2018 Status: F Source: [place] 3:23 PM [facility] REPOSITORY TYPE CODE TESTS RESULT OUT OF RANGE REFERENCE UNITS LAB L300.4150 11.7-14.9 SECONDS Normal PROTIME 13.2 LAB L300.4200 Normal INR 1.0 Performed By: #### L300.3900, L300.4310 #### [facility] [address] [place], [address] PARTIAL THROMBOPLAST Collected: 12/14/2018 Status: F Source: [place] TIME 3:23 PM [facility] REPOSITORY TYPE CODE TESTS RESULT OUT OF RANGE REFERENCE UNITS LAB L300.4310 24.1-36.2 Seconds Normal PTT 29.4 Performed By: #### L300.3900, L300.4310 #### [facility] [address] [place], [address] BASIC METABOLIC Collected: 12/14/2018 Status: F Source: [place] PROFILE (BMP) 3:23 PM [facility] REPOSITORY TYPE CODE TESTS RESULT OUT OF RANGE REFERENCE UNITS LAB L501.0100 74-106 mg/dL Normal GLU 90 Result Comment: Please note revised GLUCOSE reference range effective 2017. LAB L501.1000 7-18 mg/dL High BUN 30 LAB L501.1100 0.70-1.30 mg/dL High CREAT,SERUM 1.46 Result Comment: The validity of the calculated GFR AND GFRAA in patients over 70 years has not been determined. Clinical correlation is essential. LAB L501.1110 >60 mL/min Low EST GFR 50 Result Comment: Non- GFR Calc LAB L501.1115 >60 mL/min Normal EST GFR - AA 61 Result Comment: GFR Calc LAB L501.1300 10-20 RATIO High BUN/CRE 20.5 LAB L501.2200 8.5-10.1 mg/dL CA Normal 8.7 LAB L501.5300 136-145 mmol/L NA Normal 137 LAB L501.5600 3.5-5.1 mmol/L Low K 3.0 LAB L501.5900 98-107 mmol/L CL Normal 100 LAB L501.6100 21.0-32.0 mmol/L Normal CO2 28.0 LAB L501.6200 5-15 Normal GAP 9 Performed By: #### L500.2500, L500.3400 #### [facility] [address] [place], [place], [id number] LIVER PROFILE Collected: 12/14/2018 Status: F Source: [place] 3:23 PM [facility] REPOSITORY TYPE CODE TESTS RESULT OUT OF RANGE REFERENCE UNITS LAB L501.1500 6.4-8.2 g/dL Normal T PROT 7.4 LAB L501.1800 3.2-5.0 g/dL Normal ALB 3.7 LAB L501.1950 2.2-4.2 g/dL Normal GLOB 3.7 LAB L501.4100 15-37 U/L Normal AST 28 LAB L501.4305 45-117 U/L Normal ALK P 66 LAB L501.4405 16-61 U/L Normal ALT 27 LAB L501.4600 0.20-1.00 mg/dL Normal T BILI 0.90 LAB L501.4700 0.00-0.30 mg/dL High D BILI 0.32 Performed By: #### L500.2500, L500.3400 #### [facility] [address] [place], [place], [address] Observed: 12/03/2018 Status: F Source: [place] CULTURE, URINE 11:15 AM [facility] REPOSITORY Urine Culture Below infection level. ORGANISM 1: Mixed Gram Positive Organisms [place] Count <1000 Performed By: #### M100.0650 #### [facility] [address] [place], [place], [address] EMERGENCY DEPARTMENT Observed: 11/19/2018 Status: F Source: [place] SUMMARY 5:31 AM [facility] REPOSITORY [facility] Medical Records Department [address] [place] [address] Emergency Department Summary 11/18/18 0343 MR#: [id number] Acct: [id number] Name: BUTCH DO Rep #: [id number] : 1945 73 From: Roland Cole MD PCP: Semaj Wiggins III, MD Status: DEP ER - ER Visit Summary Date of Service: 11/18/18 Chief Complaint: Dysuria and frequency History of Present Illness: The patient is a [address] Hunter and Dr. Semaj Wiggins iii. He reports that he has dysuria and frequency that began earlier today. States that he developed hematuria tonight. He has had chills, but no fever. He had a nonproductive cough for the past 2 months. He denies any abdominal pain or flank pain. Physical Examination: Vitals: Stable. Afebrile. General: Well-nourished and well-developed. Head: Normocephalic atraumatic. Neck: Supple, no lymphadenopathy. No JVD. Nontender. Cardiovascular: Irregularly irregular rhythm. No murmurs. Respiratory: No respiratory distress. Clear to auscultation bilaterally. Abdominal: Soft, nontender, nondistended, normal bowel sounds. No guarding, rebound, or peritoneal signs. No bladder distention. Back: Nontender. Extremities: Nontender, no edema. Skin: Normal color, no rash. Neurologic: Alert and oriented 3. Cranial nerves II through XII are intact. Normal strength and sensation. Psych: Normal affect. Test Results: EKG is A. fib with PVCs in the 90s. No significant change since April of this year. CBC is more for a white count of 14.0 with 84 segmented neutrophils and 8 lymphocytes. Chem-7 is more for glucose 135, BUN 38, creatinine 1.53. UA shows an obvious infection. This was sent for culture. CT flank shows the wall of the bladder to be thickened to 1.4 cm with question of a neoplasm there. Also shows an enlarged prostate. Emergency Department Course and Treatment: Patient is resting comfortably and feels well. He is given a dose of ceftriaxone IV. He would like to go home. Treatment Plan: Patient will be discharged on Cipro. Instructed to follow-up with Dr. Hunter in 1 week for further evaluation of the thickened bladder wall and his enlarged prostate. Return to the emergency department for any worsening symptoms. Disposition: To home in improved and stable condition. Impression: 1 1. UTI. 2. Enlarged prostate. This note was generated with [employer] dictation software. It may contain incorrect words, spelling, and punctuation that were not noted in review of the chart prior to signing ED Disposition - Plan for ED Patient: Disposition: Home or Assisted Living Chief Complaint: Complaint Instructions: ED UTI Cystitis Male Prescriptions: Ciprofloxacin [Cipro] 500 mg PO BID #14 tablet Referrals: Charanjit Hunter MD [STAFF PHYSICIAN] - 1 Week What to do if you have Problems For any increased pain, shortness of breath, bleeding, nausea or vomiting, chest pain, or any unexpected problems, contact your Primary Care Provider. Call [facility] ([phone]) or report to the closest Emergency Room. Call 911 if necessary. 11/19/18 0531 <Electronically signed by Roland Cole MD> Date Roland Cole MD Cosigner Signature (If Indicated): Date CC: Semaj Wiggins III, MD URINALYSIS, COMPLETE Collected: 11/18/2018 Status: F Source: [place] 1:27 AM [facility] REPOSITORY Order Comment: How was Urine Obtained? CLEAN CATCH TYPE CODE TESTS RESULT OUT OF RANGE REFERENCE UNITS LAB L400.3000 Yellow COLOR Normal Yellow LAB L400.3050 Clear Normal CLARITY Sl. Cloudy LAB L400.3200 Normal mg/dl Normal GLUCOSE, UR Normal LAB L400.3300 Negative mg/dL Normal BILIRUBIN URINE Negative LAB L400.3400 Negative mg/dl Normal KETONE UR Negative LAB L400.3465 1.002-1.030 Normal SP.GR. DIPSTX 1.015 LAB L400.3550 5.0 - 8.0 pH UR Normal 6.0 LAB L400.3600 Negative mg/dl High PROT 30 DIPSTX LAB L400.3700 Normal mg/dl Normal UROBILI Normal LAB L400.3750 Negative High NITRITE UR Positive LAB L400.3780 Negative /ul High OCCULT BLOOD-UR 250 LAB L400.3800 Negative /ul High LEUK ESTERASE 500 LAB L400.4050 0-5 /hpf WBC Normal >100 SEEN LAB L400.4100 0-5 /hpf > Normal RBC-UA 100 SEEN LAB L400.4150 0-5 /hpf SQUAM Normal EPI 0-5 SEEN LAB L400.4300 None Seen /hpf 2+ Normal BACTERIA LAB L400.4350 <or=2+ /hpf 0 Normal MUCUS, URINE SEEN Performed By: #### L400.0001 #### [facility] [address] [place], [place], [address] Observed: 11/18/2018 Status: F Source: [place] CULTURE, URINE 1:21 AM [facility] REPOSITORY Order Date: 11/18/18 Has pt arrived? Y Urine Culture ORGANISM 1: Presumptive E. coli [place] Count >100,000 Presumptive E. coli: REACTION Amoxacillin/Clavulanic Acid $ <=2 S Ampicillin $ 4 S Ampicillin/Sulbactam $ <=2 S Cefazolin $ <=4 S Cefepime $ <=1 S Ceftriaxone $ <=1 S Ciprofloxacin $ <=0.25 S ESBL - Ertapenim $$$ <=0.5 S Gentamicin $ <=1 S Imipenem *NF <=0.25 S Levofloxacin $ <=0.12 S Nitrofurantoin $ <=16 S Piperacillin/Tazobactam $$ <=4 S Tobramycin $ <=1 S Trimethoprim/Sulfametho $ <=20 S (NF) indicates non-formulary drug at [facility]. Approval by Infectious Disease Specialist required before non-formulary drugs may be ordered and/or dispensed. Performed By: #### M100.0650 #### [facility] [address] [place], [place], [address] CBC W/DIFF, AUTOMATED Collected: 11/18/2018 Status: F Source: [place] 1:10 AM [facility] REPOSITORY TYPE CODE TESTS RESULT OUT OF RANGE REFERENCE UNITS LAB L100.1000 4.4-11.0 K/mm3 High WBC 14.0 LAB L100.1200 4.6-6.2 M/mm3 Normal RBC 4.94 LAB L100.1300 13.0-16.5 g/dl Normal HGB 15.5 LAB L100.1400 40-54 % Normal HCT 44.7 LAB L100.1500 80-94 fL Normal MCV 90.5 LAB L100.1600 27.0-32.0 pg Normal MCH 31.4 LAB L100.1700 32-36 g/gl Normal MCHC 34.7 LAB L100.1810 11.6-14.6 % Normal RDW CV 14.2 LAB L100.1820 35.1-43.9 fl High RDW SD 46.4 LAB L100.1900 150-450 K/mm3 Normal PLT 221 LAB L100.2000 6.2-12.0 fl Normal MPV 10.0 LAB L100.2100 47-70 % High NEUT% 83.8 LAB L100.2200 19-41 % Low LY% 7.6 LAB L100.2300 0-10 % Normal MONO% 7.8 LAB L100.2400 0-5 % Normal EO% 0.6 LAB L100.2500 0-1 % Normal BASO% 0.1 LAB L100.2550 0.0-0.9 % Normal IM GRAN % 0.100 Result Comment: IG% - Immature Granulocytes (promyelocytes, myelocytes and metamyelocytes) > 1% indicates that a LEFT SHIFT is Present. LAB L100.2620 2.0-7.7 X10 3/uL High Absolute Neut 11.7 LAB L100.2720 0.83-4.51 X10 3/ul Normal Absolute Lymph 1.06 Performed By: #### L100.0100 #### [facility] [address] [address] [place], [place], [id number] BASIC METABOLIC Collected: 11/18/2018 Status: F Source: [place] PRO[place] (BMP) 1:10 AM [facility] [place] REPOSITORY TYPE CODE TESTS RESULT OUT OF RANGE REFERENCE UNITS LAB L501.0100 74-106 mg/dL High GLU 135 Result Comment: Fasting Glucose result greater than or equal to 126 mg/dL suggests DIABETES MELLITUS per A.D.A. criteria. Please note revised GLUCOSE reference range effective 2017. LAB L501.1000 7-18 mg/dL High BUN 38 LAB L501.1100 0.70-1.30 mg/dL High CREAT,SERUM 1.53 Result Comment: The validity of the calculated GFR AND GFRAA in patients over 70 years has not been determined. Clinical correlation is essential. LAB L501.1110 >60 mL/min Low EST GFR 48 Result Comment: Non- GFR Calc LAB L501.1115 >60 mL/min Low EST GFR - AA 58 Result Comment: GFR Calc LAB L501.1255 ml/min Normal Estimated CRCL 40.80 LAB L501.1300 10-20 RATIO High BUN/CRE 24.8 LAB L501.2200 8.5-10 mg/dL Normal .1 CA 8.7 LAB L501.5300 136-14 mmol/L Normal 5 NA 137 LAB L501.5600 3.5-5. mmol/L Normal 1 K 3.9 LAB L501.5900 98-107 mmol/L Normal CL 101 LAB L501.6100 21.0-3 mmol/L Normal 2.0 CO2 29.0 LAB L501.6200 5-15 Normal GAP 7 Performed By: #### L500.2500 #### [facility] [address] [place], [address] ABDOMEN/PELVIS WITHOUT Observed: 11/18/2018 Status: F Source: [place] CONT 12:58 AM [facility] [place] REPOSITORY [facility] Imaging Services [address] [place] [address] Abdomen/Pelvis without Cont MR#: [id number] Acct: [id number] Name: BUTCH DO Rep #: [id number] : 1945 M 73 From: Andrea Barreto MD PCP: Semaj Wiggins III, MD Status: REG ER Study: Abdomen/Pelvis without Cont Date of Exam: 11/18/18 Exam# [id number] Ordering Dr: Roland Cole MD STUDY: CT ABDOMEN AND PELVIS WITHOUT CONTRAST REASON FOR EXAM: Male, 73 years old. Hematuria. RADIATION DOSAGE (If Supplied By Facility): CTDIvol = ( 20.61 ) mGy, DLP = ( 983.51 ) mGycm TECHNIQUE: Transaxial images were obtained from the dome of the diaphragm to the symphysis pubis without oral contrast, and without intravenous contrast. Sagittal and coronal images were reconstructed. Individualized dose optimization techniques were used for this CT. COMPARISON: None. FINDINGS: The visualized lung bases are unremarkable. The visualized portions of the heart are within normal limits. New decrease attenuation lesions are seen in the liver are located in segments #2 and segment #5 measuring respectively 2.7 cm in 3 cm most likely represent cysts. Normal gallbladder and extrahepatic biliary system. Normal spleen. Normal pancreas. There is a small, circumscribed, smooth, low attenuation left adrenal mass, consistent with an adrenal adenoma. Normal right adrenal gland. Normal right kidney. Normal left kidney. Normal visualized stomach. Normal small intestine. Normal colon. There are surgical clips in the region of the appendix consistent with a prior appendectomy. Normal abdominal aorta. Normal inferior vena cava. Normal retroperitoneum. There is thickening of urinary bladder wall on the right side measuring approximately 1.4 cm in maximum thickness may represent a neoplastic process. There is enlargement of the prostate gland. There is a right-sided inguinal hernia containing adipose tissue. There are diffuse degenerative changes of the visualized lumbar spine. CT/Abdomen/Pelvis without Cont IMPRESSION: There is thickening of urinary bladder wall on the right side measuring approximately 1.4 cm in maximum thickness may represent a neoplastic process. Electronically Signed: Andrea Barreto MD at 2:23 EST Tel , Service support , CC: Semaj Wiggins III, MD; Roland Cole MD Mannequin Refinisher: Signed CARDIOLOGY VISIT Observed: 10/12/2018 Status: F Source: [place] REPORT 2:53 PM [facility] REPOSITORY [facility] [address] [place] [address]. [address] [place] [address] OFFICE VISIT Date of Service: 10/12/18 MR#: [id number] Acct: [id number] Name: BUTCH DO Rep #: [id number] : 1945 Provider: Emanuel Galvez MD Age/Sex: 73/M Location: [facility] Status: Signed HPI HPI Details: BUTCH DO, is a 73 M who presents to the office today for outpatient cardiovascular follow-up. He states overall he is doing well. He has recognized no acute changes in his underlying rate and/or rhythm. He has had no symptoms of angina pectoris and has not had any episodes of acute CHF or pulmonary edema. There is been no near syncope or syncope. He states that his super pee pill works well for him with respect to maintaining fluid balance. He wears support stockings which have been helpful for him. He had lipid labs performed on 09/17/2018. His total cholesterol is 159 with an LDL of 94 and an HDL of 41. His triglycerides were 119. Intake Vital Signs10/12/18 Height 5 ft 6 in 10/12/18 Weight: 244 lb 10/12/18 Body Mass Index (BMI) 39.4 10/12/18 Blood Pressure 118/82 H 10/12/18 Blood Pressure Location Lt brachial Intake Visit Reasons: 6 M FU Personalized Living Manager Nurse Required: No Accompanied by: Is patient in pain?: No Allergies lisinopril Adverse Reaction (Verified 10/12/18 14:05) Unknown Penicillins Adverse Reaction (Verified 10/12/18 14:05) Unknown phenazopyridine HCl [From Pyridium] Adverse Reaction (Verified 10/12/18 14:05) Unknown Medications Pravastatin [Pravachol] 80 mg PO MOWEFR 12/25/13 [History Confirmed 10/12/18] Finasteride [Proscar] 5 mg PO DAILY 11/22/17 [History Confirmed 10/12/18] losartan 50 mg tablet 50 mg PO DAILY #90 tab 12/21/17 [Rx Confirmed 10/12/18] carvedilol 12.5 mg tablet 12.5 mg PO BID 04/05/18 [History Confirmed 10/12/18] nitroglycerin 0.4 mg sublingual tablet 0.4 mg SUBLINGUAL Q5M PRN #90 tab 04/09/18 [Rx Confirmed 10/12/18] furosemide 40 mg tablet 40 mg PO BIDLX #180 tab 07/18/18 [Rx Confirmed 10/12/18] potassium chloride ER 20 mEq tablet,extended release(part/cryst) 20 meq PO DAILY #90 tab 07/19/18 [Rx Confirmed 10/12/18] aspirin 325 mg tablet 325 mg PO DAILY 08/22/18 [History Confirmed 10/12/18] metolazone 2.5 mg tablet 2.5 mg PO Q OTHER DAY 10/12/18 [History Confirmed 10/12/18] PFSH Medical History Essential hypertension (Chronic) Old myocardial infarction (Acute) Paroxysmal atrial fibrillation (Acute) Hyperlipidemia (Chronic) Chronic systolic congestive heart failure (Chronic) Atherosclerotic heart disease of [place] coronary artery without angina pectoris (Chronic) Hyperthyroidism (Acute) Tobacco dependence (Acute) BPH (benign prostatic hyperplasia) (Chronic) HTN (hypertension) (Inactive) Surgical History Presence of stent in coronary artery (Chronic 08/2013) Hx of appendectomy (Resolved) Postsurgical percutaneous transluminal coronary angioplasty (PTCA) status (Resolved 08/2013) Family History Brother Hypertension Social History Smoking Status: Current some day smoker alcohol intake: never substance use type: does not use ROS Const Const: Negative for fatigue, weakness, night sweats, excessive sweating, frequent falls, headache(s) or daytime sleepiness Eyes Eyes: Negative for loss of peripheral vision, transient loss of vision, blind spots, double vision or blurry vision ENT ENT: Negative for headache(s), dizziness, balance problems, Nosebleed/epistaxis, tongue swelling or lip swelling Cardio Chest Pain: No Palpitations: No Edema: None Muscle aches with walking: None Resp Respiratory: Negative for SOB at rest, SOB orthopnea\SOB lying down, Cough, paroxysmal nocturnal dyspnea or SOB with activity GI GI: Negative nausea, vomiting, heartburn, black,tarry stools or bright, red blood in stools : Negative for hematuria Musc Musc: Negative for balance problems, muscle aches/ myalgia, muscle weakness or joint pain Skin Skin: Negative non-healing lesions, unusual bruising or rash Neuro Neuro: Negative for weakness, frequent falls, headache(s), double vision, dizziness, lightheadedness, orthostatic symptoms, blurry vision or lack of coordination V[place]y Hematologic/Lymphatic: Negative for easy bruising or easy bleeding Endo Endo: Negative for fatigue, excessive sweating, cold intolerance, heat intolerance, increased thirst/drinking or hair loss Psych Psych: Negative for anxiety or depression Allergy Allergy/Immunology: Negative for throat swelling, Negative for tongue swelling, Negative for hives, Negative for rash, Negative for lip swelling Cardiology Exam Const Appearance: cooperative, healthy appearing, comfortable, well developed and well groomed Nutritional Appearance: overweight Orientation: alert, awake and oriented x3 Head Head: normal to inspection, normocephalic and atraumatic Ears: hearing grossly normal bilaterally Nose: external nose normal Face and Sinus: face symmetric Mouth: oral mucosae normal Eyes Eyelids: eyelids normal Conjunctivae: conjunctivae normal Pupils: PERRL EOM: EOM intact bilaterally Neck Neck: normal visual inspection and full ROM Carotids: normal carotid upstroke Chest Chest inspection: normal inspection of the chest, symmetric chest movement and normal respiratory effort Auscultation: Bilateral: Rales, Inspiratory Wheezes, Expiratory Wheezes Cardio Palpation: normal PMI Rhythm: irregular rhythm Heart sounds: S1 normal and S2 normal GI GI: soft, normal to inspection and bowel sounds present Neuro General: alert, awake, oriented x3 and moves all extremities Skin Skin: no rashes or lesions noted Extremities Pulses: Normal: Right Radial Pulse, Left Radial Pulse Lower Extremity Edema: +2: Bilateral (Bilateral lower extremity supports to) Psych Psychological: normal affect Supplemental Info He had a transthoracic echocardiogram at [facility] on 12/10/2015 Interpretation Summary The study was technically difficult. Segmental dysfunction with preserved ejection fraction (see wall motion). The estimated ejection fraction is 60 %. Mild concentric left ventricular hypertrophy. The left atrium is mildly enlarged. The right atrium is mildly enlarged. There is mild mitral annular calcification. Mild-Moderate (1-2+) mitral valve insufficiency. Mild tricuspid valve insufficiency. Mild focal aortic valve thickening. Trivial pulmonic valve insufficiency. Right ventricular systolic pressure estimated to be 48 mmHg. Transmitral diastolic flow velocities suggest diastolic dysfunction (pseudonormal pattern). Transthoracic echocardiogram: 08/27/2018 Interpretation Summary The study was technically difficult. Contrast injection was performed. Segmental dysfunction with preserved ejection fraction (see wall motion). The estimated ejection fraction is 65 %. The left atrium is mildly enlarged. The right atrium is mildly enlarged. There is mild mitral annular calcification. Mild-Moderate (1-2+) mitral valve insufficiency. Moderate (2+) tricuspid valve insufficiency. Mild focal aortic valve thickening. Epicardial fat. Right ventricular systolic pressure estimated to be 44 mmHg. Diastolic function is indeterminate. He had a transesophageal echocardiogram at [facility] on 12/19/2014 Interpretation Summary Segmental dysfunction with preserved ejection fraction (see wall motion). The estimated ejection fraction is 55 %. The left atrium is mildly enlarged. There is no spontenous contrast in the left atrium. No thrombus is detected in the left atrial appendage. The right atrium is mildly enlarged. There is mild mitral annular calcification. Mild diffuse mitral valve thickening. Mild-Moderate (1-2+) mitral valve insufficiency. Mild tricuspid valve insufficiency. Agitated saline contrast study demonstrates findings c/w late bubble noted within the left atrium c/w a noncardiac / intrapulmonary shunt. Mild atherosclerosis of the aortic arch and mild to moderate atherosclerosis of the descending thoracic aorta. He underwent diagnostic cardiac catheterization/PCI at [facility] on 09/03/2013. According to the report he had severely elevated left ventricular end-diastolic pressure 42 mmHg, the LVEF was 45% with severe hypokinesis of the inferior wall, no aortic valve stenosis, no mitral valve regurgitation, single-vessel CAD with a successful thrombotic me and stenting of the acute thrombus and 99% stenosis in the proximal to mid RCA with a bare-metal stent Assessment AND Plan 1. Atherosclerosis of [place] coronary artery of [place] heart without angina pectoris I25.10 PTCA/BMS of the RCA x2 with thrombectomy 08/2013 Plan At the present time he appears to be without acute symptoms. He will continue his current medical management and follow-up. 2. Presence of stent in coronary artery Z95.5 PTCA/BMS of the RCA x2 with thrombectomy 08/2013 Plan He has history of PCI as noted above. Again he will continue his current medical therapy and follow-up. 3. Chronic systolic CHF (congestive heart failure) I50.22 Plan He does not appear to have any evidence of acute on chronic systolic mediated CHF. He will continue his medical management and follow-up. 4. Paroxysmal atrial fibrillation I48.0 Plan He does have paroxysmal atrial fibrillation. His rate and rhythm do vary. He has had issues with anticoagulants in the past with epistaxis and hematuria. He states on aspirin therapy alone, if he cuts himself, he bleeds profusely. Discussion was held with him with respect to his paroxysmal atrial fibrillation and his thromboembolic risks and anticoagulant therapy. He does not want to reinitiate anticoagulant therapy at this time. A discussion was held with him with respect to referral to a tertiary care center for consideration for a left atrial appendage occluder device such as a Watchman device. He states he will consider his options. For the time being he will continue his current medical management. 5. Hyperlipidemia, unspecified hyperlipidemia type E78.5 Plan His lipid labs were reviewed as noted above. He will continue medical therapy and follow-up. 6. Essential hypertension I10 Plan His blood pressure appears to be reasonably well-controlled at this time. He will continue medical management and follow-up. Plan Detail Other Medications New: Additional Comments Thank you for allowing me to participate in the care of your patient. Please don't hesitate to call if any issues arise. This note was generated using a voice recognition system and there may be incorrect words, spelling or punctuation that were not noted when reviewing the office note prior to saving. Follow Up 6 Months (PFM) Coding Level of Care Code Off vis,est,level 3 Diagnoses Atherosclerosis of [place] coronary artery of [place] heart without angina pectoris I25.10 [place] vs. transplanted heart: [place] heart Presence of stent in coronary artery Z95.5 Chronic systolic CHF (congestive heart failure) I50.22 Paroxysmal atrial fibrillation I48.0 Hyperlipidemia, unspecified hyperlipidemia type E78.5 Hyperlipidemia type: unspecified Essential hypertension I10 Coding Level of Care Code Off vis,est,level 3 Diagnoses Atherosclerosis of [place] coronary artery of [place] heart without angina pectoris I25.10 [place] vs. transplanted heart: [place] heart Presence of stent in coronary artery Z95.5 Chronic systolic CHF (congestive heart failure) I50.22 Paroxysmal atrial fibrillation I48.0 Hyperlipidemia, unspecified hyperlipidemia type E78.5 Hyperlipidemia type: unspecified Essential hypertension I10 10/12/18 8533 <Electronically signed by Emanuel Galvez MD> Date Emanuel Galvez MD Cosigner Signature: Date (if applicable) CC: Semaj Wiggins III, MD LIVER PROFILE Collected: 09/17/2018 Status: F Source: [place] 12:50 PM [facility] REPOSITORY TYPE CODE TESTS RESULT OUT OF RANGE REFERENCE UNITS LAB L501.1500 6.4-8.2 g/dL Normal T PROT 7.0 LAB L501.1800 3.2-5.0 g/dL Normal ALB 3.5 LAB L501.1950 2.2-4.2 g/dL Normal GLOB 3.5 LAB L501.4100 15-37 U/L Low AST 13 LAB L501.4305 45-117 U/L Normal ALK P 61 LAB L501.4405 16-61 U/L Normal ALT 25 LAB L501.4600 0.20-1.00 mg/dL Normal T BILI 0.80 LAB L501.4700 0.00-0.30 mg/dL Normal D BILI 0.23 Performed By: #### L500.3400, L500.4100 #### [facility] [address] [place], [address] LIPID PROFILE Collected: 09/17/2018 Status: F Source: [place] 12:50 PM [facility] REPOSITORY TYPE CODE TESTS RESULT OUT OF RANGE REFERENCE UNITS LAB L501.4900 200 mg/dL Normal CHOL 159 Result Comment: <200 mg/dL Desirable 200-240 mg/dL Borderline >240 mg/dL High Risk LAB L501.5000 mg/dL Normal TRIG 119 Result Comment: The drugs N-Acetylcysteine and Metamizole may falsely depress this assay. Serum Triglycerides Reference Interval Normal <150 mg/dL Borderline high 150 - 199 mg/dL High 200 - 499 mg/dL Very High > or = 500 mg/dL LAB L501.6400 mg/dL Normal HDL 41 Result Comment: The drugs N-Acetylcysteine and Metamizole may falsely depress this assay. Reference Range HDL <40 mg/dL Low HDL Cholesterol HDL >or= 60 mg/dL High HDL Cholesterol LAB L501.6500 0-130 mg/dL Normal LDL 94 LAB L501.6600 5-40 mg/dL Normal VLDL 24 Performed By: #### L500.3400, L500.4100 #### [facility] [address] [place], [address] ECHO, COMPLETE W/ Observed: 08/30/2018 Status: F Source: [place] CONTRAST 1:06 PM [facility] REPOSITORY [facility] Cardiovascular Services [address] [place] [address] Echo Complete W/ Contrast 08/27/18 1405 MR#: [id number] Acct: [id number] Name: BUTCH DO Rep #: [id number] : 1945 73 From: Emanuel Galvez MD Attending Dr: Emanuel Galvez MD Status: REG CLI Ordering Dr: Emanuel Galvez MD Date: 08/27/18 Location: [facility] Sex: M C Admitted: Reason For Study: CHF Procedure This was a 2D Doppler, Color Flow transthoracic echocardiogram. The study was technically difficult. Contrast injection was performed. Exam performed in department. Left Ventricle Normal LV size. Segmental dysfunction with preserved ejection fraction (see wall motion). The estimated ejection fraction is 65 %. Diastolic function is indeterminate. Infero-Basal: Hypokinetic. Mid-Inferior: Hypokinetic. Right Ventricle Normal RV size. Normal systolic function. Atria The left atrium is mildly enlarged. The right atrium is mildly enlarged. No doppler evidence for ASD. Mitral Valve There is mild mitral annular calcification. Normal mitral valve. Mild-Moderate (1-2+) mitral valve insufficiency. Tricuspid Valve Normal tricuspid valve. Moderate (2+) tricuspid valve insufficiency. Right ventricular systolic pressure estimated to be 44 mmHg. Aortic Valve Trisinus/trileaflet aortic valve. Mild focal aortic valve thickening. Pulmonic Valve The pulmonic valve is not well visualized. Great Vessels Normal sized aortic root. Pericardium/Pleural No pericardial effusion. Epicardial fat. Medication 22 gauge I.V. with prn adaptor inserted into right arm. Diluted definity 2ml given slow IV push to enhance endocardial definition. MMode/2D Measurements AND Calculations LVIDd: 4.6 cm IVSd: 1.1 cm Ao root diam: 3.4 cm LVIDs: 3.0 cm LVPWd: 1.4 cm RVDd: 4.0 cm FS: 35.0 % LAV(MOD-bp): 62.8 ml LA A4 area: 22.9 cm2 RA A4 area: 20.4 cm2 LAV(MOD-bp) Indexed: 28.2 ml/m2 LAV(MOD-sp2): 49.4 ml LAV(MOD-sp4): 65.0 ml Time Measurements MV dec time: 0.18 sec Doppler Measurements AND Calculations MV E max maged: 102.3 cm/sec MV V2 max: 102.7 cm/sec MV P1/2t max maged: 103.4 cm/sec MV max P.2 mmHg MV P1/2t: 55.3 msec MV V2 mean: 50.5 cm/sec MV dec slope: 547.0 cm/sec2 MV mean P.2 mmHg MVA(P1/2t): 4.0 cm2 MV V2 VTI: 23.7 cm Ao V2 max: 114.7 cm/sec LV V1 max: 79.6 cm/sec PA V2 max: 82.8 cm/sec Ao max P.3 mmHg LV V1 max P.5 mmHg Ao V2 mean: 74.7 cm/sec LV V1 mean P.1 mmHg Ao mean P.6 mmHg LV V1 mean: 47.8 cm/sec Ao V2 VTI: 20.2 cm LV V1 VTI: 14.8 cm TR max maged: 318.7 cm/sec TR max P.6 mmHg Interpretation Summary The study was technically difficult. Contrast injection was performed. Segmental dysfunction with preserved ejection fraction (see wall motion). The estimated ejection fraction is 65 %. The left atrium is mildly enlarged. The right atrium is mildly enlarged. There is mild mitral annular calcification. Mild-Moderate (1-2+) mitral valve insufficiency. Moderate (2+) tricuspid valve insufficiency. Mild focal aortic valve thickening. Epicardial fat. Right ventricular systolic pressure estimated to be 44 mmHg. Diastolic function is indeterminate. Ordering Physician: Emanuel Galvez Referring Physician: ROCAEL Wiggins M.D. Performed By: Yomi Andrews RCS 08/27/18 1553 Date Emanuel Galvez MD CC: Semaj Wiggins III, MD; Emanuel Galvez MD Date Dictated: 08/27/18 1405 Date Transcribed: 08/27/18 567 Mannequin Refinisher: Signed CARDIOLOGY VISIT Observed: 08/22/2018 Status: F Source: [place] REPORT 5:33 PM [facility] REPOSITORY [facility] [address] [place] [address] OFFICE VISIT Date of Service: 08/22/18 MR#: [id number] Acct: [id number] Name: BUTCH DO Rep #: [id number] : 1945 Provider: Emanuel Galvez MD Age/Sex: 73/M Location: [facility] [place] Status: Signed HPI HPI Details: BUTCH DO, is a 73 M who presents to the office today for outpatient cardiovascular follow-up based upon concerns of worsening shortness of breath/dyspnea as well as orthopnea and continued ongoing peripheral pitting edema. He states that since his last visit he has been in and out of the [facility] emergency department and/or hospital for concerns of recurrent bronchitis. He notes that he was treated medically and released home. He did not require further cardiac evaluation during these times. More recently he states he feels as if he is developing similar type symptoms. He is noting progressive shortness of breath and dyspnea, findings compatible with orthopnea, and potentially worsening lower extremity chronic peripheral pitting edema. He denies any chest discomfort. There has been no near syncope or syncope. He states he has been taking his medications as prescribed. He did have an ECG in the office today. He was noted to be in underlying atrial fibrillation with a leftward axis and low voltage QRS in the limb leads as well as poor R wave progression. Intake Vital Signs08/22/18 Height 5 ft 6 in 08/22/18 Weight: 251 lb 08/22/18 Body Mass Index (BMI) 40.5 08/22/18 Blood Pressure 132/72 H Intake Visit Reasons: edema, fatigue, cough Allergies lisinopril Adverse Reaction (Verified 08/22/18 15:38) Unknown Penicillins Adverse Reaction (Verified 08/22/18 15:38) Unknown phenazopyridine HCl [From Pyridium] Adverse Reaction (Verified 08/22/18 15:38) Unknown Medications Pravastatin [Pravachol] 80 mg PO MOWEFR 12/25/13 [History Confirmed 08/22/18] Finasteride [Proscar] 5 mg PO DAILY 11/22/17 [History Confirmed 08/22/18] losartan 50 mg tablet 50 mg PO DAILY #90 tab 12/21/17 [Rx Confirmed 08/22/18] carvedilol 12.5 mg tablet 12.5 mg PO BID 04/05/18 [History Confirmed 08/22/18] nitroglycerin 0.4 mg sublingual tablet 0.4 mg SUBLINGUAL Q5M PRN #90 tab 04/09/18 [Rx Confirmed 08/22/18] furosemide 40 mg tablet 40 mg PO BIDLX #180 tab 07/18/18 [Rx Confirmed 08/22/18] potassium chloride ER 20 mEq tablet,extended release(part/cryst) 20 meq PO DAILY #90 tab 07/19/18 [Rx Confirmed 08/22/18] aspirin 325 mg tablet 325 mg PO DAILY 08/22/18 [History Confirmed 08/22/18] metolazone 2.5 mg tablet 2.5 mg PO Q OTHER DAY #30 tab 08/22/18 [Rx Confirmed 08/22/18] PFSH Medical History Presence of stent in coronary artery (Chronic 08/2013) Old myocardial infarction (Acute) Paroxysmal atrial fibrillation (Acute) Hyperlipidemia (Chronic) Chronic systolic congestive heart failure (Chronic) Atherosclerotic heart disease of [place] coronary artery without angina pectoris (Chronic) Hyperthyroidism (Acute) HTN (hypertension) (Chronic) Tobacco dependence (Acute) BPH (benign prostatic hyperplasia) (Chronic) Surgical History Hx of appendectomy (Resolved) Postsurgical percutaneous transluminal coronary angioplasty (PTCA) status (Resolved 08/2013) Family History Brother Hypertension Social History Smoking Status: Current some day smoker alcohol intake: never substance use type: does not use ROS Const Const: Positive for fatigue (increased); negative for weakness, weight gain, weight loss, frequent falls or excessive sweating Eyes Eyes: Negative for change in vision, blurry vision or transient loss of vision ENT ENT: Negative for dizziness or balance problems Cardio Chest Pain: No Palpitations: No Edema: Bilateral (pitting edema noted to bilat LE) Muscle aches with walking: None Resp Respiratory: Positive for SOB with activity (increased), Cough (productive, yellow sputum noted) and snoring (increased, loud and raspy); negative for SOB at rest GI GI: Negative vomiting or vomiting blood/hematemesis : Negative for hematuria Musc Musc: Negative for balance problems, muscle aches/ myalgia, muscle weakness or joint pain Skin Skin: Negative non-healing lesions or rash Neuro Neuro: Negative for weakness, blurry vision, dizziness, lightheadedness, frequent falls or orthostatic symptoms Vitaly Hematologic/Lymphatic: Negative for easy bleeding Endo Endo: Positive for fatigue (increased); negative for excessive sweating Psych Psych: Negative for anxiety or depression Allergy Allergy/Immunology: Negative for hives, Negative for rash Cardiology Exam Const Appearance: cooperative, healthy appearing, comfortable, well developed and well groomed Nutritional Appearance: overweight Orientation: alert, awake and oriented x3 Head Head: normal to inspection, normocephalic and atraumatic Ears: hearing grossly normal bilaterally Nose: external nose normal Face and Sinus: face symmetric Mouth: oral mucosae normal Eyes General: appearance normal, both eyes and all related structures Eyelids: eyelids normal Conjunctivae: conjunctivae normal Pupils: PERRL EOM: EOM intact bilaterally Neck Neck: normal visual inspection and full ROM Carotids: normal carotid upstroke Chest Chest inspection: normal inspection of the chest and symmetric chest movement Auscultation: Bilateral: Rales, Inspiratory Wheezes, Expiratory Wheezes Cardio Palpation: normal PMI Rhythm: irregular rhythm Heart sounds: S1 normal and S2 normal GI GI: soft, no hepatosplenomegaly, normal to inspection and bowel sounds present Neuro General: alert, awake, oriented x3 and moves all extremities Extremities Pulses: Normal: Right Radial Pulse, Left Radial Pulse Lower Extremity Edema: +2: Bilateral (Bilateral lower extremity supports to) Psych Psychological: normal affect Supplemental Info He had a transthoracic echocardiogram at [facility] on 12/10/2015 Interpretation Summary The study was technically difficult. Segmental dysfunction with preserved ejection fraction (see wall motion). The estimated ejection fraction is 60 %. Mild concentric left ventricular hypertrophy. The left atrium is mildly enlarged. The right atrium is mildly enlarged. There is mild mitral annular calcification. Mild-Moderate (1-2+) mitral valve insufficiency. Mild tricuspid valve insufficiency. Mild focal aortic valve thickening. Trivial pulmonic valve insufficiency. Right ventricular systolic pressure estimated to be 48 mmHg. Transmitral diastolic flow velocities suggest diastolic dysfunction (pseudonormal pattern). He had a transesophageal echocardiogram at [facility] on 12/19/2014 Interpretation Summary Segmental dysfunction with preserved ejection fraction (see wall motion). The estimated ejection fraction is 55 %. The left atrium is mildly enlarged. There is no spontenous contrast in the left atrium. No thrombus is detected in the left atrial appendage. The right atrium is mildly enlarged. There is mild mitral annular calcification. Mild diffuse mitral valve thickening. Mild-Moderate (1-2+) mitral valve insufficiency. Mild tricuspid valve insufficiency. Agitated saline contrast study demonstrates findings c/w late bubble noted within the left atrium c/w a noncardiac / intrapulmonary shunt. Mild atherosclerosis of the aortic arch and mild to moderate atherosclerosis of the descending thoracic aorta. He underwent diagnostic cardiac catheterization/PCI at [facility] on 09/03/2013. According to the report he had severely elevated left ventricular end-diastolic pressure 42 mmHg, the LVEF was 45% with severe hypokinesis of the inferior wall, no aortic valve stenosis, no mitral valve regurgitation, single-vessel CAD with a successful thrombotic me and stenting of the acute thrombus and 99% stenosis in the proximal to mid RCA with a bare-metal stent Assessment AND Plan 1. Atherosclerosis of [place] coronary artery of [place] heart without angina pectoris I25.10 PTCA/BMS of the RCA x2 with thrombectomy 08/2013 Plan At the present time he appears to be without symptoms of classic acute angina pectoris or acute coronary syndrome. He will need to continue medical management and future evaluation and care as deemed appropriate. Orders Orders: 2. Presence of stent in coronary artery Z95.5 PTCA/BMS of the RCA x2 with thrombectomy 08/2013 Plan He does have a history of previous RCA thrombectomy and PCI/bare- metal stent. Again he is without classic acute symptoms for acute angina pectoris or an acute coronary syndrome. He will continue medical management and follow-up. 3. Chronic systolic CHF (congestive heart failure) I50.22 Plan There are concerns his symptoms may represent acute on chronic systolic CHF. He will have laboratory evaluation with a BMP and a BNP. He will also have further evaluation with a chest x-ray. He will be asked to have an echocardiogram to reassess his left ventricular wall motion and systolic function. This may help guide further evaluation and care. In the interim he is going to be started on additional medical management. This will include metolazone at 2.5 mg every other day 30 minutes prior to his a.m. Lasix dose. Depending upon his response he may need further adjustment of medication, further cardiac, or further noncardiac-pulmonary evaluation and care. Orders Orders: 4. Paroxysmal atrial fibrillation I48.0 Plan He does have evidence of atrial fibrillation at this time. He will need to continue medical management. He is on rate control therapy. If his atrial fibrillation persists then he will also need to be considered for a re-attempt and anticoagulant therapy. He had been on anticoagulant therapy in the past however he had recurrent severe epistaxis and his anticoagulant therapy had to be discontinued. Orders Orders: 5. Hyperlipidemia, unspecified hyperlipidemia type E78.5 Plan He will need to continue risk factor modification medical management. A copy of his most recent lipid labs would be appreciated for continuity of care. 6. Essential hypertension I10 Plan His blood pressure appears to be reasonably well-controlled at the moment. He will continue medical therapy and follow-up. Plan Detail Other Medications New: metolazone 30 minutes prior to AM furosemide/lasix d2.5 mg PO Q OTHER DAY 30 tabs 3RF ose Additional Comments The above was discussed with the patient and his spouse. They were agreeable to this approach. During this time if he has worsening symptoms or adverse events he was asked to notify his physicians or present back to the emergency department for reevaluation. Thank you for allowing me to participate in the care of your patient. Please don't hesitate to call if any issues arise. This note was generated using a voice recognition system and there may be incorrect words, spelling or punctuation that were not noted when reviewing the office note prior to saving. Follow Up 1 Month (PFM) Coding Level of Care Code Off vis,est,level 4 Diagnoses Atherosclerosis of [place] coronary artery of [place] heart without angina pectoris I25.10 [place] vs. transplanted heart: [place] heart Presence of stent in coronary artery Z95.5 Chronic systolic CHF (congestive heart failure) I50.22 Paroxysmal atrial fibrillation I48.0 Hyperlipidemia, unspecified hyperlipidemia type E78.5 Hyperlipidemia type: unspecified Essential hypertension I10 Hypertension type: essential hypertension Coding Level of Care Code Off vis,est,level 4 Diagnoses Atherosclerosis of [place] coronary artery of [place] heart without angina pectoris I25.10 [place] vs. transplanted heart: [place] heart Presence of stent in coronary artery Z95.5 Chronic systolic CHF (congestive heart failure) I50.22 Paroxysmal atrial fibrillation I48.0 Hyperlipidemia, unspecified hyperlipidemia type E78.5 Hyperlipidemia type: unspecified Essential hypertension I10 Hypertension type: essential hypertension 08/22/18 8363 <Electronically signed by Emanuel Galvez MD> Date Emanuel Galvez MD Cosigner Signature: Date (if applicable) CC: Semaj Wiggins III, MD BASIC METABOLIC Collected: 08/22/2018 Status: F Source: [place] PROFILE (BMP) 5:15 PM [facility] REPOSITORY TYPE CODE TESTS RESULT OUT OF RANGE REFERENCE UNITS LAB L501.0100 74-106 mg/dL Normal GLU 103 Result Comment: Fasting Glucose result from 100 to 125 mg/dL suggests IMPAIRED HOMEOSTASIS per A.D.A. criteria. Please note revised GLUCOSE reference range effective 2017. LAB L501.1000 7-18 mg/dL Normal BUN 15 LAB L501.1100 0.70-1.30 mg/dL Normal CREAT,SERUM 1.02 Result Comment: The validity of the calculated GFR AND GFRAA in patients over 70 years has not been determined. Clinical correlation is essential. LAB L501.1110 >60 mL/min Normal EST GFR 76 Result Comment: Non- GFR Calc LAB L501.1115 >60 mL/min Normal EST GFR - AA 92 Result Comment: GFR Calc LAB L501.1300 10-20 RATIO Normal BUN/CRE 14.7 LAB L501.2200 8.5-10.1 mg/dL CA Normal 8.8 LAB L501.5300 136-145 mmol/L NA Normal 138 LAB L501.5600 3.5-5.1 mmol/L K Normal 4.4 LAB L501.5900 98-107 mmol/L CL Normal 106 LAB L501.6100 21.0-32.0 mmol/L Normal CO2 26.0 LAB L501.6200 5-15 Normal GAP 6 Performed By: #### L500.2500, L503.6620 #### [facility] [address] [place], [place], [id number] BNP,B-TYPE NATRIURETIC Collected: 08/22/2018 Status: F Source: [place] PEPTIDE 5:15 PM [facility] REPOSITORY TYPE CODE TESTS RESULT OUT OF RANGE REFERENCE UNITS LAB L503.6620 0-100 pg/mL High B-TYPE 147.0 LYNNE PEP Performed By: #### L500.2500, L503.6620 #### [facility] [address] [place], [address] CHEST PA AND LATERAL Observed: 08/22/2018 Status: F Source: [place] 4:56 PM [facility] REPOSITORY [facility] Imaging Services [address] [place] [address] Chest PA and Lateral MR#: [id number] Acct: [id number] Name: BUTCH DO Rep #: [id number] : 1945 M 73 From: Solomon Marshall MD PCP: Semaj Wiggins III, MD Status: REG CLI Study: Chest PA and Lateral Date of Exam: 08/22/18 Exam# [id number] Ordering Dr: Emanuel Galvez MD STUDY: X-RAY CHEST REASON FOR EXAM: Male, 73 years old. Congestive heart failure, shortness of breath TECHNIQUE: PA and lateral chest COMPARISON: 05/13/2018 FINDINGS: No significant change in the pattern of chronic interstitial lung disease compared to imaging of April 2018. Consistent with the presence of underlying COPD/emphysema, with chronic coarsening of the interstitium, flattening of the hemidiaphragms, increased AP diameter of the chest. There is no definitive pulmonary vascular congestion or perihilar edema. There is mild blunting of the right costophrenic angle consistent with presence of a small effusion. There is no dense focal infiltrate or consolidation. No cardiomegaly. Normal mediastinal silhouette, sherri and pleural margins. No acute osseous or upper abdominal process. RAD/Chest PA and Lateral IMPRESSION: Features of COPD/emphysema. Stable. Suspected small right effusion with blunting of the right costophrenic angle. No definitive pattern of volume overload or cardiogenic pulmonary edema. No cardiomegaly. Electronically Signed: Solomon Marshall, at 16:43 EDT Tel , Service support , CC: Semaj Wiggins III, MD; Emanuel Galvez MD Mannequin Refinisher: Signed 12 LEAD EKG PERFORMED Observed: 08/22/2018 Status: F Source: [place] BY BMS 3:53 PM [facility] REPOSITORY [facility] [address] [place] [address] 12 Lead EKG performed by BMS 08/22/181552 MR#: [id number] Acct: [id number] Name: BUTCH DO Rep #: [id number] : 1945 73 From: Emanuel Galvez MD Attending Dr: Emanuel Galvez MD Status: DEP AMB Ordering Dr: Emanuel Galvez MD Date: 08/22/18 Location: [facility] Sex: M C Admitted: BMS/12 Lead EKG performed by [facility] ECG Report Interpretation Atrial fibrillation with occasional ectopic ventricular beat Low voltage in limb leads. Poor R wave progressionNonspecific T-abnormality. ABNORMAL Electronically signed on 08/22/2018 at 18:15 by Emanuel Galvez [employer] Software Version 8610 08/22/188 Date Emanuel Galvez MD CC: Semaj Wiggins III, MD Date Dictated: 08/22/18 1553 Date Transcribed: 08/22/181552 Mannequin Refinisher: PM Signed PSA,TOTAL - ANNUAL Collected: 06/26/2018 Status: F Source: [place] SCREEN 4:06 PM [facility] REPOSITORY TYPE CODE TESTS RESULT OUT OF RANGE REFERENCE UNITS LAB L501.9910 0.00-4.00 ng/mL Normal PSA,TOT 2.04 SCREEN Result Comment: This test was performed using the TPSA assay method for the [employer] chemistry system. Values obtained with different assay methods cannot be used interchangably. When changing PSA assays in the course of monitoring a patient, additional sequential testing should be carried out to confirm baseline values. Performed By: #### L501.9910 #### [facility] [address] [place], [address] EMERGENCY DEPARTMENT Observed: 06/05/2018 Status: F Source: [place] SUMMARY 7:20 AM [facility] REPOSITORY [facility] Medical Records Department [address] [place] [address] Emergency Department Summary 05/13/18 1906 MR#: [id number] Acct: [id number] Name: BUTCH DO Rep #: [id number] : 1945 73 From: Pipo Kamara MD PCP: Semaj Wiggins III, MD Status: DEP ER - ER Visit Summary Date of Service: 05/13/18 Chief Complaint: [] Cough and shortness of breath History of Present Illness: The patient is a 73 M complaining of shortness of breath for last 2 and half days with a cough with mucus. Positive wheezing. He has been using Coricidin oral medication. No home oxygen. He does smoke. No history of COPD. He is on Lasix for history of CHF remotely. No recent weight gain with fluids. Physical Examination: [] Vital signs reviewed General: Well-nourished well-developed Head: Normocephalic atraumatic Eyes: Pupils equal round and reactive to light extraocular movements intact ENT: TMs clear no hemotympanum no trauma Neck: Nontender full range of motion Cardiovascular: Regular rate rhythm no murmurs normal S1-S2 Respiratory: Diffuse wheezes throughout all lung love with mucoid cough chest nontender Abdomen: Soft nontender nondistended normal bowel sounds no masses Back: Nontender no CVA tenderness Extremities: Nontender active range of motion 4 extremities no trauma Skin: Normal color no trauma Neuro alert oriented cranial nerves II through XII intact normal strength sensation reflexes Test Results: [] Emergency Department Course and Treatment: [] Lab work and EKG chest x-ray obtained. Patient has significant wheezing given albuterol nebulizer treatment 3 and Atrovent nebulizer treatment 1 followed by Solu-Medrol. On reevaluation the patient is symptom-free resting comfortably. Wheezing has resolved. Given albuterol inhaler will be given prednisone for home. I do not think he needs antibiotics. I think he has asthmatic bronchitis. EKG did show A. fib at a rate 84. Troponins negative. CBC chemistries normal. Patient will be discharged. He stated he has been in atrial fibrillation in the past. He has had on and off. He is on carvedilol with rate control. He has not had it recently however. He is on aspirin. He was on xarelto pass prior to cardioversion however he developed diffuse full body bleeding so he is no longer allowed to take anticoagulants other than aspirin. 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 He is rate controlled. Treatment Plan: [] Disposition: [] Impression: [] Asthmatic bronchitis This note was generated with [employer] dictation software. It may contain incorrect words, spelling, and punctuation that were not noted in review of the chart prior to signing ED Disposition - Plan for ED Patient: Disposition: Home or Assisted Living Chief Complaint: Shortness of Breath Instructions: ED Bronchitis Asthmatic Prescriptions: Prednisone [Deltasone] 60 mg PO DAILY #15 tab Referrals: Semaj Wiggins III, MD [Primary Care Provider] - What to do if you have Problems For any increased pain, shortness of breath, bleeding, nausea or vomiting, chest pain, or any unexpected problems, contact your Primary Care Provider. Call [facility] ([phone]) or report to the closest Emergency Room. Call 911 if necessary. 06/05/18 0720 <Electronically signed by Pipo Kamara MD> Date Pipo Kamara MD Cosigner Signature (If Indicated): Date CC: Semaj Wiggins III, MD DISCHARGE INSTRUCTION Observed: 06/05/2018 Status: F Source: [place] 7:20 AM [facility] REPOSITORY [facility] Medical Records Department [address] [place] [address] Discharge Instruction 05/13/182031 MR#: [id number] Acct: [id number] Name: BUTCH DO Rajinder Rep #: [id number] : 1945 73 From: Pipo Kamara MD PCP: Semaj Wiggins III, MD Status: DEP ER ED Disposition - Plan for ED Patient: Disposition: Home or Assisted Living Chief Complaint: Shortness of Breath Instructions: ED Bronchitis Asthmatic Prescriptions: Prednisone [Deltasone] 60 mg PO DAILY #15 tab Referrals: Semaj Wiggins III, MD [Primary Care Provider] - What to do if you have Problems For any increased pain, shortness of breath, bleeding, nausea or vomiting, chest pain, or any unexpected problems, contact your Primary Care Provider. Call [facility] ([phone]) or report to the closest Emergency Room. Call 911 if necessary. 06/05/18719 <Electronically signed by Pipo Kamara MD> Date Pipo Kamara MD Cosigner Signature (If Indicated): Date CC: Semaj Wiggins III, MD 12 LEAD ELECTROCARDIOGRAM Observed: 05/16/2018 Status: F Source: [place] 3:55 PM [facility] REPOSITORY [facility] Cardiovascular Services [address] [place], [place] [address] [address] 12 Lead EKG 05/13/18 192 MR#: [id number] Acct: [id number] Name: BUTCH DO Rep #: [id number] : 1945 73 From: Jed Lopez MD Attending Dr: Status: DEP ER Ordering Dr: Pipo Kamara MD Date: 05/13/18 Location: ED Sex: M C Admitted: Test Reason : SOB Blood Pressure : / mmHG Vent. Rate : 084 BPM Atrial Rate : 078 BPM P-R Int : 000 ms QRS Dur : 084 ms QT Int : 370 ms P-R-T Axes : 000 -40 076 degrees QTc Int : 437 ms Atrial fibrillation Left axis deviation Low voltage QRS Abnormal ECG Confirmed by JED LOPEZ MD ([id number]), desk editor MANPREET PENA ([id number]) on 05/16/2018 3:55:32 PM Referred By: Emanuel Galvez Confirmed By:JED LOPEZ MD 05/16/18 1555 Date Jed Lopez MD CC: Semaj Wiggins III, MD; iPpo Kamara MD; Emanuel Galvez MD Signed CBC W/DIFF, AUTOMATED Collected: 05/13/2018 Status: F Source: [place] 7:20 PM [facility] REPOSITORY TYPE CODE TESTS RESULT OUT OF RANGE REFERENCE UNITS LAB L100.1000 4.4-11.0 K/mm3 Normal WBC 5.0 LAB L100.1200 4.6-6.2 M/mm3 Normal RBC 4.81 LAB L100.1300 13.0-16.5 g/dl Normal HGB 14.4 LAB L100.1400 40-54 % Normal HCT 42.2 LAB L100.1500 80-94 fL Normal MCV 87.7 LAB L100.1600 27.0-32.0 pg Normal MCH 29.9 LAB L100.1700 32-36 g/gl Normal MCHC 34.1 LAB L100.1810 11.6-14.6 % Normal RDW CV 13.9 LAB L100.1820 35.1-43.9 fl High RDW SD 45.0 LAB L100.1900 150-450 K/mm3 Normal PLT 190 LAB L100.2000 6.2-12.0 fl Normal MPV 9.9 LAB L100.2100 47-70 % Normal NEUT% 56.4 LAB L100.2200 19-41 % Normal LY% 28.8 LAB L100.2300 0-10 % High MONO% 12.2 LAB L100.2400 0-5 % Normal EO% 2.0 LAB L100.2500 0-1 % Normal BASO% 0.4 LAB L100.2550 0.0-0.9 % Normal IM GRAN % 0.200 Result Comment: IG% - Immature Granulocytes (promyelocytes, myelocytes and metamyelocytes) > 1% indicates that a LEFT SHIFT is Present. LAB L100.2620 2.0-7.7 X10 3/uL Normal Absolute Neut 2.8 LAB L100.2720 0.83-4.51 X10 3/ul Normal Absolute Lymph 1.44 Performed By: #### L100.0100 #### [facility] [address] [place], [address] BASIC METABOLIC Collected: 05/13/2018 Status: F Source: [place] PROFILE (BMP) 7:20 PM [facility] REPOSITORY TYPE CODE TESTS RESULT OUT OF RANGE REFERENCE UNITS LAB L501.0100 74-106 mg/dL High GLU 109 Result Comment: Fasting Glucose result from 100 to 125 mg/dL suggests IMPAIRED HOMEOSTASIS per A.D.A. criteria. Please note revised GLUCOSE reference range effective 2017. LAB L501.1000 7-18 mg/dL Normal BUN 14 LAB L501.1100 0.70-1.30 mg/dL Normal CREAT,SERUM 0.83 Result Comment: The validity of the calculated GFR AND GFRAA in patients over 70 years has not been determined. Clinical correlation is essential. LAB L501.1110 >60 mL/min Normal EST GFR 96 Result Comment: Non- GFR Calc LAB L501.1115 >60 mL/min Normal EST GFR - AA 116 Result Comment: GFR Calc LAB L501.1255 ml/min Normal Estimated CRCL 72.60 LAB L501.1300 10-20 RATIO Normal BUN/CRE 16.8 LAB L501.2200 8.5-10 mg/dL Normal .1 CA 8.7 LAB L501.5300 136-14 mmol/L Normal 5 NA 136 LAB L501.5600 3.5-5. mmol/L Normal 1 K 4.7 Result Comment: Moderate Hemolysis, Result may be falsely increased. LAB L501.5900 98-107 mmol/L Normal CL 105 LAB L501.6100 21.0-32.0 mmol/L Normal CO2 25.0 LAB L501.6200 5-15 Normal 6 GAP Performed By: #### L500.2500, L501.4010 #### [facility] [address] [place], [address] TROPONIN-I Collected: 05/13/2018 Status: F Source: [place] 7:20 PM [facility] REPOSITORY TYPE CODE TESTS RESULT OUT OF RANGE REFERENCE UNITS LAB L501.4010 <0.045 ng/mL Normal < 0.015 TROPONIN-I Result Comment: TROPONIN-I EXPECTED VALUES <0.045 Negative 0.045 - 0.590 Consistent with Cardiac Damage > OR = 0.600 Critical Value Not every elevated troponin is indicative of [place]. These values should be used with clinical judgement in examining the patient's clinical picture for diagnosis. To establish a diagnosis of [place] versus myocardial injury, there must be a demonstrated rise and/or fall in the troponin values, in addition to ischemic symptoms, EKG changes, new regional wall motion abnormality, and/or angiographical evidence. PLEASE NOTE: REFERENCE RANGES EDITED 18 Performed By: #### L500.2500, L501.4010 #### [facility] [address] [place], [address] CHEST PA AND LATERAL Observed: 05/13/2018 Status: F Source: [place] 7:06 PM [facility] REPOSITORY [facility] Imaging Services [address] [place] [address] Chest PA and Lateral MR#: [id number] Acct: [id number] Name: BUTCH DO Rep #: [id number] : 1945 73 From: Kulwinder Heath MD PCP: Semaj Wiggins III, MD Status: DEP ER Study: Chest PA and Lateral Date of Exam: 05/13/18 Exam# [id number] Ordering Dr: Pipo Kamara MD STUDY: X-RAY CHEST REASON FOR EXAM: Male, 73 years old. Cough and short of breath. TECHNIQUE: Frontal and lateral views of the chest. COMPARISON: 11/22/2017. FINDINGS: The lungs are hyperexpanded. There are coarsened interstitial markings suggestive of moderate chronic fibrosis. No gross focal infiltrates. No gross effusions. Normal size heart. Normal mediastinum and sherri. Normal visualized pulmonary arteries. Normal visualized aortic arch and descending thoracic aorta. Normal visualized thoracic spine. Normal visualized ribs, clavicles, and shoulders. There is no demonstrated abnormality of the visualized soft tissue structures of the upper abdomen. 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 No change or acute abnormality. Electronically Signed: Kulwinder Heath MD at 20:47 EDT , Service support , CC: Semaj Wiggins III, MD; Pipo Kamara MD Mannequin Refinisher: Signed CARDIOLOGY VISIT Observed: 04/09/2018 Status: F Source: [place] REPORT 2:07 PM [facility] [place] REPOSITORY [facility] [address] [place] [address]. [address] [place] [address] OFFICE VISIT Date of Service: 04/09/18 MR#: [id number] Acct: [id number] Name: BUTCH DO Rep #: [id number] : 1945 Provider: Emanuel Galvez MD Age/Sex: 73/M Location: [facility] [place] Status: Signed HPI HPI Details: BUTCH DO, is a 73 M who presents to the office today for for outpatient cardiovascular follow-up of his history of underlying CAD, PCI, paroxysmal atrial fibrillation, hyperlipidemia, and hypertension. Since his last visit of 10/09/2017 he states overall he has been doing well with respect to his cardiovascular status. He was hospitalized briefly in October for concerns of underlying influenza A and a COPD exacerbation. He states he has not required any other additional cardiovascular testing. He is not complaining of ongoing symptoms of classic angina pectoris at rest or with exertion. He has not used his nitroglycerin sublingual. There has been no CHF or pulmonary edema. There is been no near syncope or syncope. His lipid labs were performed on 03/16/2018. At that time his total cholesterol was noted to be 105 with an LDL of 55 and an HDL of 37. His triglycerides were 67. His AST and ALT were within acceptable limits. Intake Vital Signs04/09/18 Height 5 ft 6 in 04/09/18 Weight: 249 lb 04/09/18 Body Mass Index (BMI) 40.1 04/09/18 Blood Pressure 140/72 Intake Visit Reasons: 6 M FU Allergies lisinopril Adverse Reaction (Verified 04/09/18 13:25) Unknown Penicillins Adverse Reaction (Verified 04/09/18 13:25) Unknown phenazopyridine HCl [From Pyridium] Adverse Reaction (Verified 04/09/18 13:25) Unknown Medications Aspirin E.C. [Ecotrin] 325 mg PO DAILY@0800 12/25/13 [History Confirmed 04/09/18] Nitroglycerin [Nitrostat] 0.4 mg SUBLINGUAL Q5M PRN 12/25/13 [History Confirmed 04/09/18] Potassium Chloride [K-Dur] 20 meq PO DAILY 12/25/13 [History Confirmed 04/09/18] Pravastatin [Pravachol] 80 mg PO MOWEFR 12/25/13 [History Confirmed 04/09/18] Finasteride [Proscar] 5 mg PO DAILY 11/22/17 [History Confirmed 04/09/18] Furosemide [Lasix] 40 mg PO BIDLX 11/22/17 [History Confirmed 04/09/18] losartan 50 mg tablet 50 mg PO DAILY #90 tab 12/21/17 [Rx Confirmed 04/09/18] carvedilol 12.5 mg tablet 12.5 mg PO BID 04/05/18 [History Confirmed 04/09/18] PFSH Medical History Presence of stent in coronary artery (Chronic 08/2013) Old myocardial infarction (Acute) Paroxysmal atrial fibrillation (Acute) Hyperlipidemia (Chronic) Chronic systolic congestive heart failure (Chronic) Atherosclerotic heart disease of [place] coronary artery without angina pectoris (Chronic) Hyperthyroidism (Acute) HTN (hypertension) (Chronic) Tobacco dependence (Acute) BPH (benign prostatic hyperplasia) (Chronic) Surgical History Hx of appendectomy (Resolved) Postsurgical percutaneous transluminal coronary angioplasty (PTCA) status (Resolved 08/2013) Family History Brother Hypertension Social History Smoking Status: Light Smoker (<10/day) alcohol intake: never substance use type: does not use ROS Const Const: Negative for fatigue, weakness, weight gain, weight loss, frequent falls or excessive sweating Eyes Eyes: Negative for change in vision, blurry vision or transient loss of vision ENT ENT: Negative for dizziness or balance problems Cardio Chest Pain: No Palpitations: No Edema: Bilateral (wears compression stockings) Muscle aches with walking: None Resp Respiratory: Negative for SOB with activity or SOB at rest GI GI: Negative vomiting or vomiting blood/hematemesis : Negative for hematuria Musc Musc: Negative for balance problems, muscle aches/ myalgia, muscle weakness or joint pain Skin Skin: Negative non-healing lesions or rash Neuro Neuro: Negative for weakness, blurry vision, dizziness, lightheadedness, frequent falls or orthostatic symptoms V[place]y Hematologic/Lymphatic: Negative for easy bleeding Endo Endo: Negative for fatigue or excessive sweating Psych Psych: Negative for anxiety or depression Allergy Allergy/Immunology: Negative for hives, Negative for rash Cardiology Exam Const Appearance: cooperative, healthy appearing, comfortable, well developed and well groomed Nutritional Appearance: overweight Orientation: alert, awake and oriented x3 Head Head: normal to inspection, normocephalic and atraumatic Ears: hearing grossly normal bilaterally Nose: external nose normal Face and Sinus: face symmetric Mouth: oral mucosae normal Eyes General: appearance normal, both eyes and all related structures Eyelids: eyelids normal Conjunctivae: conjunctivae normal Pupils: PERRL EOM: EOM intact bilaterally Neck Neck: normal visual inspection and full ROM Carotids: normal carotid upstroke Chest Chest inspection: normal inspection of the chest and symmetric chest movement Auscultation: Bilateral: Clear to Auscultation Cardio Palpation: normal PMI Rate: regular rate Rhythm: ectopic beats and regular rhythm Heart sounds: S1 normal and S2 normal GI GI: soft, no hepatosplenomegaly, normal to inspection and bowel sounds present Neuro General: alert, awake, oriented x3 and moves all extremities Extremities Pulses: Normal: Right Radial Pulse, Left Radial Pulse Lower Extremity Edema: +1: Bilateral Psych Psychological: normal affect Supplemental Info He did have a transthoracic echocardiogram performed [facility] on 12/10/2015. The results are as noted below. Interpretation Summary The study was technically difficult. Segmental dysfunction with preserved ejection fraction (see wall motion). The estimated ejection fraction is 60 %. Mild concentric left ventricular hypertrophy. The left atrium is mildly enlarged. The right atrium is mildly enlarged. There is mild mitral annular calcification. Mild-Moderate (1-2+) mitral valve insufficiency. Mild tricuspid valve insufficiency. Mild focal aortic valve thickening. Trivial pulmonic valve insufficiency. Right ventricular systolic pressure estimated to be 48 mmHg. Transmitral diastolic flow velocities suggest diastolic dysfunction (pseudonormal pattern). He did have a previous cardiac catheterization/PCI performed on 09/03/[address] [facility]. The final impression is as noted below. Severely elevated left ventricular end-diastolic pressure of 42 mmHg. The left ventricular ejection fraction was 45%. Severe hypokinesis of the inferior wall of the left ventricle. No aortic valve stenosis. No mitral valve regurgitation. Right dominant coronary system. Severe single-vessel coronary artery disease. Successful thrombectomy and successful stenting of the acute thrombus/99% stenosis in the proximal to mid right coronary artery. (Bare-metal) Assessment AND Plan 1. Atherosclerosis of [place] coronary artery of [place] heart without angina pectoris I25.10 PTCA/BMS of the RCA x2 with thrombectomy 08/2013 Plan At the present time he appears to be doing well. He is not complaining of ongoing symptoms of classic angina pectoris nor has he had any overt episodes of CHF or pulmonary edema. There is been no near syncope or syncope. He will continue his current medical management and follow-up. 2. Presence of stent in coronary artery Z95.5 PTCA/BMS of the RCA x2 with thrombectomy 08/2013 Plan He does have a history of previous thrombectomy and PCI with bare-metal stent to the RCA as noted above. Again he appears to be doing reasonably well at this time. He will continue his current medical management and follow-up. 3. Chronic systolic CHF (congestive heart failure) I50.22 Plan He has had no obvious symptoms of acute on chronic systolic or diastolic mediated CHF. He appears to be stable on his current medications. They will be continued. 4. Paroxysmal atrial fibrillation I48.0 Plan He does have a history of paroxysmal atrial dysrhythmias with paroxysmal atrial fibrillation/flutter. He has been on antiplatelet therapy. He had been on anticoagulant therapy in the past but that was discontinued secondary concerns of severe epistaxis. He remains on rate control therapy. He had previously been on antiarrhythmic therapy with amiodarone. However this was subsequently removed secondary to concerns of interaction with his underlying thyroid function studies. 5. Hyperlipidemia, unspecified hyperlipidemia type E78.5 Plan His lipid labs were noted above. He will continue medical management and follow-up. 6. Essential hypertension I10 Plan His blood pressure does wax and wane somewhat. However appears to be under reasonably good control at the moment. He will continue medical management and follow-up. Plan Detail Additional Comments He will be scheduled for an outpatient visit in approximately 6 months unless needed sooner. Thank you for allowing me to participate in the care of your patient. Please don't hesitate to call if any issues arise. This note was generated using a voice recognition system and there may be incorrect words, spelling or punctuation that were not noted when reviewing the office note prior to saving. Follow Up 6 Months (PFM) Coding Level of Care Code Off vis,est,level 3 Diagnoses Atherosclerosis of [place] coronary artery of [place] heart without angina pectoris I25.10 [place] vs. transplanted heart: [place] heart Presence of stent in coronary artery Z95.5 Chronic systolic CHF (congestive heart failure) I50.22 Paroxysmal atrial fibrillation I48.0 Hyperlipidemia, unspecified hyperlipidemia type E78.5 Hyperlipidemia type: unspecified Essential hypertension I10 Hypertension type: essential hypertension Coding Level of Care Code Off vis,est,level 3 Diagnoses Atherosclerosis of [place] coronary artery of [place] heart without angina pectoris I25.10 [place] vs. transplanted heart: [place] heart Presence of stent in coronary artery Z95.5 Chronic systolic CHF (congestive heart failure) I50.22 Paroxysmal atrial fibrillation I48.0 Hyperlipidemia, unspecified hyperlipidemia type E78.5 Hyperlipidemia type: unspecified Essential hypertension I10 Hypertension type: essential hypertension 04/09/18 1407 <Electronically signed by Emanuel Galvez MD> Date Emanuel Galvez MD Cosigner Signature: Date (if applicable) CC: Semaj Wiggins III, MD LIVER PROFILE Collected: 03/16/2018 Status: F Source: [place] 8:57 AM [facility] REPOSITORY Order Comment: Order Date: 09/15/17 Order Info: [id number] - *Hepatic Function Panel Order Info: [id number] - *Lipid Profile CC PCP Comments: 12 hours fasting, may have water. TYPE CODE TESTS RESULT OUT OF RANGE REFERENCE UNITS LAB L501.1500 6.4-8.2 g/dL Normal T PROT 7.1 LAB L501.1800 3.2-5.0 g/dL Normal ALB 3.7 LAB L501.1950 2.2-4.2 g/dL Normal GLOB 3.4 LAB L501.4100 15-37 U/L Low AST 12 LAB L501.4305 45-117 U/L Normal ALK P 70 LAB L501.4405 16-61 U/L Normal ALT 20 LAB L501.4600 0.20-1.00 mg/dL Normal T BILI 0.80 LAB L501.4700 0.00-0.30 mg/dL Normal D BILI 0.17 Performed By: #### L500.3400 #### [facility] [address] [place], [address] LIPID PROFILE Collected: 03/16/2018 Status: F Source: [place] 8:57 AM [facility] REPOSITORY Order Comment: Order Date: 09/15/17 Order Info: [id number] - *Hepatic Function Panel Order Info: [id number] - *Lipid Profile CC PCP Comments: 12 hours fasting, may have water. TYPE CODE TESTS RESULT OUT OF RANGE REFERENCE UNITS LAB L501.4900 200 mg/dL Normal CHOL 105 Result Comment: <200 mg/dL Desirable 200-240 mg/dL Borderline >240 mg/dL High Risk LAB L501.5000 mg/dL Normal TRIG 67 Result Comment: The drugs N-Acetylcysteine and Metamizole may falsely depress this assay. Serum Triglycerides Reference Interval Normal <150 mg/dL Borderline high 150 - 199 mg/dL High 200 - 499 mg/dL Very High > or = 500 mg/dL LAB L501.6400 mg/dL Low HDL 37 Result Comment: The drugs N-Acetylcysteine and Metamizole may falsely depress this assay. Reference Range HDL <40 mg/dL Low HDL Cholesterol HDL >or= 60 mg/dL High HDL Cholesterol LAB L501.6500 0-130 mg/dL Normal LDL 55 LAB L501.6600 5-40 mg/dL Normal VLDL 13 Performed By: #### L500.4100 #### [facility] [address] [place], [address] PROGRESS Observed: 03/02/2018 Status: COMPLETED Source: [place] 1:45 PM [facility] REPOSITORY HNO ID: [id number] Author: Pritesh Byrne LPN Service: (none) Author Type: (none) Type: Progress Notes Filed: 03/02/2018 3:09 PM Note Text: Manual Readin/78 Pulse: 76 Home Cuff: 136/85 P: 65 Reason for blood pressure check - Last BP elevated and Medication adjustment Patient is: Taking medication as prescribed No Took medication today Yes If no, date medication last taken N/A Experiencing side effects No BP was elevated at last appt 02/16/18. Losartan was increased to 100mg daily at that time. He reports that he has not done that d/t he did not take his medication the day of his appt. Denies any chest pain, shortness of breath, dizziness, or headaches. Occasional caffeine use with soda; none today. Current everyday tobacco use. Alert and oriented. Pt has been identified by name and birthdate: Yes Allergies reviewed: Yes Latex allergy: no. Medication - prescribed and OTC reviewed and updated: Yes Do you need any prescription refills prior to your next visit: No Health Maintenance: Reviewed and not up to date and provider notified Patient advised that he would be contacted after review by Dr instructor business education. Pritesh Byrne LPN CNNURSE Observed: 03/02/2018 Status: COMPLETED Source: [place] 1:30 PM [facility] REPOSITORY Nurse Visit (FAMPWS) BUTCH DO ([id number]) 1945 M Date Time Provider Department 03/02/18 1:30 PM [place] NURSE FAMPWS During your visit today, we recorded the following information about you: Pulse Blood pressure 76/minute 124/78 Pritesh Byrne LPN 03/02/2018 3:09 PM Signed Manual Readin/78 Pulse: 76 Home Cuff: 136/85 P: 65 Reason for blood pressure check - Last BP elevated and Medication adjustment Patient is: Taking medication as prescribed No Took medication today Yes If no, date medication last taken N/A Experiencing side effects No BP was elevated at last appt 02/16/18. Losartan was increased to 100mg daily at that time. He reports that he has not done that d/t he did not take his medication the day of his appt. Denies any chest pain, shortness of breath, dizziness, or headaches. Occasional caffeine use with soda; none today. Current everyday tobacco use. Alert and oriented. Pt has been identified by name and birthdate: Yes Allergies reviewed: Yes Latex allergy: no. Medication - prescribed and OTC reviewed and updated: Yes Do you need any prescription refills prior to your next visit: No Health Maintenance: Reviewed and not up to date and provider notified Patient advised that he would be contacted after review by instructor business education. Pritesh Byrne LPN Referring Provider: SEMAJ WIGGINS III [[id number]] Allergies As of Date: 03/02/2018 Noted Allergy Reaction LISINOPRIL 05/10/2010 Comments: cough, sweating LOTENSIN (BENAZEPRIL HCL) 10/29/2007 3 - Cough PENICILLINS 09/30/2005 14 - Other: See Comments Comments: kidney problems Date Reviewed: 02/16/2018 Reviewed by: Alejandrina ([facility]) CELIO Cardona - Fully Assessed Reason for Visit: Blood Pressure Check [195] Primary Visit Diagnosis:Essential hypertension, benign [I10] Prescriptions as of 03/02/2018 Sig: FUROSEMIDE 40 MG TABLET Take 2 tablets by mouth twice* ASPIRIN 325 MG TABLET,DELAYED* Take 1 tablet by mouth once d* CARVEDILOL 12.5 MG TABLET ZINC DUTASTERIDE 0.5 MG CAPSULE Take 0.5 mg by mouth once alyson* POTASSIUM BICARBONATE AND CHL* Take 1 tablet by mouth once d* PRAVASTATIN 80 MG TABLET Take 1 tablet by mouth once d* NITROGLYCERIN 0.4 MG SUBLINGU* Dissolve 1 tablet under the t* LOSARTAN 100 MG TABLET Take 1 tablet by mouth once d* Medication notes this encounter LOSARTAN 100 MG TABLET >> Pritesh Byrne LPN 03/02/2018 1:40 PM >> PRITESH BYRNE LPN MonMar 02, 2018 1:40 PM Taking 50mg daily Problem List As Of Date 03/02/2018 Noted Resolved BENIGN HYPERTENSION [I10] INVALID FOR* CAROTID ART OCCL-NO INFARCT [I65.29] INVALID FOR* TOBACCO USE DISORDER [F17.200] INVALID FOR* OBESITY NOS [E66.9] INVALID FOR* HYPERLIPIDEMIA NEC/NOS [E78.5] INVALID FOR* OBST CHRON BRONCHITIS WITH EXAC [J44.1] INVALID FOR* Elevated prostate specific antigen (PSA) [R97.2*INVALID FOR* More... Epididymal cyst [N50.3] INVALID FOR* COPD with exacerbation (HCC) [J44.1] INVALID FOR* Venous insufficiency (chronic) (peripheral) [I8*INVALID FOR* ASHD (arteriosclerotic heart disease) [I25.10] INVALID FOR* History of [place] (myocardial infarction) (HCC) [I2*INVALID FOR* Hyperthyroidism [E05.90] INVALID FOR* Encounter Status:Closed by PRITESH BYRNE LPN on 03/02/18 FECAL OCCULT BLD Collected: 02/26/2018 Status: F Source: [facility] 3:00 PM [facility] REPOSITORY TYPE CODE TESTS RESULT OUT OF REFERENCE UNITS RANGE LAB IFO Negative Immuno Negative FOB Result Comment: This test was developed and its performance characteristics determined by [facility] [place] ([facility]). It has not been cleared or approved by the FDA. [facility] is regulated under CLIA as qualified to perform high-complexity testing. This test is used for clinical purposes. It should not be regarded as investigational or for research. Performed By: #### IFOBT #### [facility] [address], [place] [address] PROGRESS Observed: 02/16/2018 Status: COMPLETED Source: [place] 3:07 PM [facility] REPOSITORY HNO ID: [id number] Author: Semaj Wiggins III Service: (none) Author Type: Physician Type: Progress Notes Filed: 02/16/2018 5:50 PM Note Text: SUBJECTIVE: This is a 72 year old male that is here today for Chronic Medical Conditions. 1. COPD--no increase in cough or shortness of breath with exertion. He is not particularly physically active. 2. hypertension 3. ASHD?no chest pain or angina. He does follow-up with regularly 4. hyperlipidemia 5. tick on his body couple of days while mushroom hunting last spring. (L lower abd). [facility] extension office made determination that it was a deer tick. Went to ER and was tx with antibiotic x 21 days. No testing for Lyme disease was performed. Since then he has not noted any suspicious rash nor has he had any new or unusual muscle or joint pains. He did question what the symptoms would be for Lyme disease. We discussed the issue with he and his . 6. 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 2 bare stents - History of [place] (myocardial infarction) 09/08/2014 - Hyperlipidemia LDL goal < 100 08/2013 - Hyperthyroidism 10/12/2016 - Other and unspecified hyperlipidemia - Venous insufficiency (chronic) (peripheral) 09/08/2014 Current Outpatient Prescriptions on File Prior to Visit: furosemide (LASIX) 40 mg tablet Take 2 tablets by mouth twice daily. aspirin, enteric coated (ASPIRIN, ENTERIC COATED) 325 mg EC tablet Take 1 tablet by mouth once daily. Take with food. losartan (COZAAR) 50 mg tablet Take 50 mg by mouth once daily. CARVEDILOL 12.5 mg tablet zinc dutasteride (AVODART) 0.5 mg capsule Take 0.5 mg by mouth once daily. Potassium Bicarb and Chloride 20 mEq tbef Take 1 tablet by mouth once daily. pravastatin 80 mg tablet Take 1 tablet by mouth once daily. nitroglycerin sublingual (NITROSTAT) 0.4 mg SL tablet Dissolve 1 tablet under the tongue every 5 minutes as needed for Chest Pain. No current facility-administered medications on file prior to visit. 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 2 bare stents - History of [place] (myocardial infarction) 09/08/2014 - Hyperlipidemia LDL goal < 100 08/2013 - Hyperthyroidism 10/12/2016 - Other and unspecified hyperlipidemia - Venous insufficiency (chronic) (peripheral) 09/08/2014 Social History Substance Use Topics - Smoking status: Current Every Day Smoker Packs/day: 0.30 Years: 40.00 Types: Cigarettes - Smokeless tobacco: Never Used Comment: current - Alcohol use Yes Comment: occasionally BP 160/68 Pulse (!) 54 Resp 18 Wt 112 kg (247 lb) BMI 39.87 kg/m2 . OBJECTIVE: APPEARANCE Well appearing, alert, in no acute distress, well-hydrated, well nourished., Morbidly obese NECK Supple, no adenopathy; thyroid symmetric, normal size, no bruits HEART RRR with normal S1 and S2, no murmurs, no gallops, no JVD appreciated LUNG clear to auscultation ABDOMEN , soft, non-tender, non-distended, without organomegaly or palpable masses, no tenderness to palpation Lab Results for BUTCH DO ( ) as of 02/16/2018 15:46 Ref. Range 02/12/2018 12:17 Sodium Latest Ref Range: 136 - 144 mmol/L 141 Potassium Latest Ref Range: 3.7 - 5.1 mmol/L 4.1 Chloride Latest Ref Range: 97 - 105 mmol/L 102 CO2 Latest Ref Range: 22 - 30 mmol/L 25 BUN Latest Ref Range: 9 - 24 mg/dL 17 Creatinine Latest Ref Range: 0.73 - 1.22 mg/dL 1.11 Glucose Latest Ref Range: 74 - 99 mg/dL 96 Protein, Total Latest Ref Range: 6.3 - 8.0 g/dL 7.5 Calcium Latest Ref Range: 8.5 - 10.2 mg/dL 9.2 Albumin Latest Ref Range: 3.9 - 4.9 g/dL 4.0 Bilirubin, Total Latest Ref Range: 0.2 - 1.3 mg/dL 0.7 Alkaline Phosphatase Latest Ref Range: 36 - 108 U/L 67 ALT Latest Ref Range: 10 - 54 U/L 16 AST Latest Ref Range: 14 - 40 U/L 19 Anion Gap Latest Ref Range: 9 - 18 mmol/L 14 eGFR- Unknown >60 eGFR-All Other Races Latest Units: . >60 Cholesterol, Total Latest Ref Range: <200 mg/dL 121 Triglyceride Latest Ref Range: <150 mg/dL 123 Fasting Time Latest Units: hrs 14 HDL Cholesterol Latest Ref Range: >39 mg/dL 35 (L) LDL Cholesterol Latest Ref Range: <100 mg/dL 61 VLDL Cholesterol Latest Ref Range: <30 mg/dL 25 TC:HDL Ratio Latest Ref Range: <5.10 3.46 LDL:HDL Ratio Latest Ref Range: <2.54 1.74 Non HDL Cholesterol Latest Ref Range: <130 mg/dL 86 Hep C Antibody IA Latest Ref Range: Negative Negative PSA Latest Ref Range: 0.00 - 2.59 ng/mL 1.98 ASSESSMENT: hypertension--not at goal previous tick bite w/o sx of lyme disease ASHD--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 tobacco use Obesity PLAN: healthy weight losing diet and regular exercise eat less sugar, bread, potato, pasta, rice, corn, corn syrup, saturated fats increase losartan 100mg daily--nurse bp check in 2 wks stop all tobacco same other medications stool test for colon cancer screening Semaj Wiggins III MD CNOV Observed: 02/16/2018 Status: COMPLETED Source: [place] 2:40 PM [facility] REPOSITORY Office Visit (FAMPWS) BUTCH DO ([id number]) 1945 M Date Time Provider Department 02/16/18 2:40 PM SEMAJ WIGGINS III During your visit today, we recorded the following information about you: Pulse Respiration Blood pressure Weight 54/minute 18/minute 160/68 112 kg Semaj Wiggins III MD 02/16/2018 5:50 PM Signed SUBJECTIVE: This is a 72 year old male that is here today for Chronic Medical Conditions. 1. COPD--no increase in cough or shortness of breath with exertion. He is not particularly physically active. 2. hypertension 3. ASHD?no chest pain or angina. He does follow-up with regularly 4. hyperlipidemia 5. tick on his body couple of days while mushroom hunting last spring. (L lower abd). [facility] extension office made determination that it was a deer tick. Went to ER and was tx with antibiotic x 21 days. No testing for Lyme disease was performed. Since then he has not noted any suspicious rash nor has he had any new or unusual muscle or joint pains. He did question what the symptoms would be for Lyme disease. We discussed the issue with he and his . 6. 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 2 bare stents - History of [place] (myocardial infarction) 09/08/2014 - Hyperlipidemia LDL goal ANDlt; 100 08/2013 - Hyperthyroidism 10/12/2016 - Other and unspecified hyperlipidemia - Venous insufficiency (chronic) (peripheral) 09/08/2014 Current Outpatient Prescriptions on File Prior to Visit: furosemide (LASIX) 40 mg tablet Take 2 tablets by mouth twice daily. aspirin, enteric coated (ASPIRIN, ENTERIC COATED) 325 mg EC tablet Take 1 tablet by mouth once daily. Take with food. losartan (COZAAR) 50 mg tablet Take 50 mg by mouth once daily. CARVEDILOL 12.5 mg tablet zinc dutasteride (AVODART) 0.5 mg capsule Take 0.5 mg by mouth once daily. Potassium Bicarb and Chloride 20 mEq tbef Take 1 tablet by mouth once daily. pravastatin 80 mg tablet Take 1 tablet by mouth once daily. nitroglycerin sublingual (NITROSTAT) 0.4 mg SL tablet Dissolve 1 tablet under the tongue every 5 minutes as needed for Chest Pain. No current facility-administered medications on file prior to visit. 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 2 bare stents - History of [place] (myocardial infarction) 09/08/2014 - Hyperlipidemia LDL goal ANDlt; 100 08/2013 - Hyperthyroidism 10/12/2016 - Other and unspecified hyperlipidemia - Venous insufficiency (chronic) (peripheral) 09/08/2014 Social History Substance Use Topics - Smoking status: Current Every Day Smoker Packs/day: 0.30 Years: 40.00 Types: Cigarettes - Smokeless tobacco: Never Used Comment: current - Alcohol use Yes Comment: occasionally BP 160/68 Pulse (!) 54 Resp 18 Wt 112 kg (247 lb) BMI 39.87 kg/m2 . OBJECTIVE: APPEARANCE Well appearing, alert, in no acute distress, well- hydrated, well nourished., Morbidly obese NECK Supple, no adenopathy; thyroid symmetric, normal size, no bruits HEART RRR with normal S1 and S2, no murmurs, no gallops, no JVD appreciated LUNG clear to auscultation ABDOMEN , soft, non-tender, non-distended, without organomegaly or palpable masses, no tenderness to palpation Lab Results for BUTCH DO ( ) as of 02/16/2018 15:46 Ref. Range 02/12/2018 12:17 Sodium Latest Ref Range: 136 - 144 mmol/L 141 Potassium Latest Ref Range: 3.7 - 5.1 mmol/L 4.1 Chloride Latest Ref Range: 97 - 105 mmol/L 102 CO2 Latest Ref Range: 22 - 30 mmol/L 25 BUN Latest Ref Range: 9 - 24 mg/dL 17 Creatinine Latest Ref Range: 0.73 - 1.22 mg/dL 1.11 Glucose Latest Ref Range: 74 - 99 mg/dL 96 Protein, Total Latest Ref Range: 6.3 - 8.0 g/dL 7.5 Calcium Latest Ref Range: 8.5 - 10.2 mg/dL 9.2 Albumin Latest Ref Range: 3.9 - 4.9 g/dL 4.0 Bilirubin, Total Latest Ref Range: 0.2 - 1.3 mg/dL 0.7 Alkaline Phosphatase Latest Ref Range: 36 - 108 U/L 67 ALT Latest Ref Range: 10 - 54 U/L 16 AST Latest Ref Range: 14 - 40 U/L 19 Anion Gap Latest Ref Range: 9 - 18 mmol/L 14 eGFR- Unknown ANDgt;60 eGFR-All Other Races Latest Units: . ANDgt;60 Cholesterol, Total Latest Ref Range: ANDlt;200 mg/dL 121 Triglyceride Latest Ref Range: ANDlt;150 mg/dL 123 Fasting Time Latest Units: hrs 14 HDL Cholesterol Latest Ref Range: ANDgt;39 mg/dL 35 (L) LDL Cholesterol Latest Ref Range: ANDlt;100 mg/dL 61 VLDL Cholesterol Latest Ref Range: ANDlt;30 mg/dL 25 TC:HDL Ratio Latest Ref Range: ANDlt;5.10 3.46 LDL:HDL Ratio Latest Ref Range: ANDlt;2.54 1.74 Non HDL Cholesterol Latest Ref Range: ANDlt;130 mg/dL 86 Hep C Antibody IA Latest Ref Range: Negative Negative PSA Latest Ref Range: 0.00 - 2.59 ng/mL 1.98 ASSESSMENT: hypertension--not at goal previous tick bite w/o sx of lyme disease ASHD--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 tobacco use Obesity PLAN: healthy weight losing diet and regular exercise eat less sugar, bread, potato, pasta, rice, corn, corn syrup, saturated fats increase losartan 100mg daily--nurse bp check in 2 wks stop all tobacco same other medications stool test for colon cancer screening ROCAEL Bojorquez MD, III MD 02/16/2018 3:58 PM Signed PLAN: healthy weight losing diet and regular exercise eat less sugar, bread, potato, pasta, rice, corn, corn syrup, saturated fats increase losartan 100mg daily--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 bp check in 2 wks stop all tobacco same other medications stool test for colon cancer screening Semaj Wiggins III MD Referring Provider: SELF [200] Allergies As of Date: 02/16/2018 Noted Allergy Reaction LISINOPRIL 05/10/2010 Comments: cough, sweating LOTENSIN (BENAZEPRIL HCL) 10/29/2007 3 - Cough PENICILLINS 09/30/2005 14 - Other: See Comments Comments: kidney problems Date Reviewed: 02/16/2018 Reviewed by: [facility] CELIO Cardona - Fully Assessed Reason for Visit: Recheck [92] Primary Visit Diagnosis:Screening for colon cancer [Z12.11] Other Visit Diagnoses:Essential hypertension, benign [I10] Obstructive chronic bronchitis with exacerbation (HCC) [J44.1] ASHD (arteriosclerotic heart disease) [I25.10] Hyperthyroidism [E05.90] Tick bite, sequela [W57.XXXS] Order(s):FECAL OCCULT BLOOD TEST [SQIFOBT] Order #: [id number] FUTURE losartan (COZAAR) 100 mg tabletTake 1 tablet by mouth once daily.Disp: 90 tabletRfl: 3 Prescriptions as of 02/16/2018 Sig: FUROSEMIDE 40 MG TABLET Take 2 tablets by mouth twice* ASPIRIN 325 MG TABLET,DELAYED* Take 1 tablet by mouth once d* CARVEDILOL 12.5 MG TABLET ZINC DUTASTERIDE 0.5 MG CAPSULE Take 0.5 mg by mouth once alyson* POTASSIUM BICARBONATE AND CHL* Take 1 tablet by mouth once d* PRAVASTATIN 80 MG TABLET Take 1 tablet by mouth once d* NITROGLYCERIN 0.4 MG SUBLINGU* Dissolve 1 tablet under the t* LOSARTAN 100 MG TABLET Take 1 tablet by mouth once d* Problem List As Of Date 02/16/2018 Noted Resolved BENIGN HYPERTENSION [I10] INVALID FOR* CAROTID ART OCCL-NO INFARCT [I65.29] INVALID FOR* TOBACCO USE DISORDER [F17.200] INVALID FOR* OBESITY NOS [E66.9] INVALID FOR* HYPERLIPIDEMIA NEC/NOS [E78.5] INVALID FOR* OBST CHRON BRONCHITIS WITH EXAC [J44.1] INVALID FOR* Elevated prostate specific antigen (PSA) [R97.2*INVALID FOR* More... 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 Medications Discontinued During This Encounter amiodarone (CORDARONE) 200 mg tablet 02/16/2018 Class: Historical Med Route: ORAL Sig: Take by mouth once daily. Disc: Discontinued by another Health Care Provider albuterol HFA (PROAIR HFA) 90 mcg/ac* 1 In* 1 09/08/2014 02/16/2018 Route: INHALATION Sig: Inhale 2 Puffs as instructed every 4 hours as needed for Wheezing/Shortness of Breath. Disc: Course of therapy completed guaiFENesin (MUCINEX) 600 mg 12 hr t* 20 t* 0 02/23/2015 02/16/2018 Route: ORAL Sig: Take 2 tablets by mouth twice daily. To break up mucus. Disc: Course of therapy completed clopidogrel 75 mg tablet 30 t* 11 09/16/2013 02/16/2018 Class: Med Update Route: ORAL Sig: Take 1 tablet by mouth once daily. Disc: Discontinued by another Health Care Provider Cosign accepted by SEMAJ WIGGINS III, MD[[id number]] on 10/02/2013 2:40 PM losartan (COZAAR) 50 mg tablet 02/16/2018 Class: Historical Med Route: ORAL Sig: Take 50 mg by mouth once daily. Disc: Dosage adjustment Encounter Status:Closed by SEMAJ WIGGINS III, MD on 02/16/18 PSA, DIAGNOSTIC Collected: 02/12/2018 Status: F Source: [place] 12:17 PM [facility] REPOSITORY TYPE CODE TESTS RESULT OUT OF REFERENCE UNITS RANGE LAB PSA 0.00-2.59 ng/mL PSA, Diagnostic 1.98 Result Comment: Total PSA test methodology used is the Electrochemiluminescence Immunoassay. Performed By: #### PSA, CMP, LIPB, AHCV1B #### [facility] [address] [place] [address] COMP METABOLIC PANEL Collected: 02/12/2018 Status: F Source: [place] 12:17 PM [facility] REPOSITORY TYPE CODE TESTS RESULT OUT OF REFERENCE UNITS RANGE LAB TP 6.3-8.0 g/dL Protein, Total 7.5 LAB ALB 3.9-4.9 g/dL Albumin 4.0 LAB CA 8.5-10.2 mg/dL Calcium, Total 9.2 LAB TBIL 0.2-1.3 mg/dL Bilirubin, Total 0.7 LAB ALKP 36-108 U/L Alkaline Phosphatase 67 LAB AST 14-40 U/L AST 19 LAB GLU 74-99 mg/dL Glucose 96 Result Comment: The [place] Diabetes Association (ADA) provides guidance for cutoff values for fasting glucose and random glucose. The ADA defines fasting as no caloric intake for at least 8 hours. Fas ting plasma glucose results between 100 to 125 mg/dL indicate increased risk for diabetes (prediabetes). Fasting plasma glucose results greater than or equal to 126 mg/dL meet the criteria for diagnosis of diabetes. In the absence of unequivocal hyperglycemia, results should be confirmed by repeat testing. In a patient with classic symptoms of hyperglycemia or hyperglycemic crisis, random plasma glucose results greater than or equal to 200 mg/dL meet the criteria for diagnosis of diabetes. Reference: Standards of Medical Care in Diabetes 2016, [place] Diabetes Association. Diabetes Care. 2016.39(Suppl 1). LAB BUN 9-24 mg/dL BUN 17 LAB CRET 0.73-1.22 mg/dL Creatinine 1.11 LAB NA 136-144 mmol/L Sodium 141 LAB K 3.7-5.1 mmol/L Potassium 4.1 LAB CL 97-105 mmol/L Chloride 102 LAB CO2 22-30 mmol/L CO2 25 LAB AGAP 9-18 mmol/L Anion Gap 14 LAB ALT 10-54 U/L ALT 16 LAB GFRAA eGFR- Amer. >60 LAB GFRNAA . eGFR-All Other Races >60 Result Comment: eGFR (Estimated GFR) Units of measure: mL/min/1.73 meters squared eGFR is derived from the reexpressed MDRD Study equation using the following parameters: serum creatinine, age, gender and race. The creatinine assay has been calibrated to be traceable to IDMS. An eGFR <60 mL/min/1.73m2 for >3 months is consistent with chronic kidney disease. Refer to KDOQI guidelines for clinical interpretation. In patients with unstable renal function, e.g. those with acute kidney injury, the eGFR may not accurately reflect actual GFR. Performed By: #### PSA, CMP, LIPB, AHCV1B #### [facility] [address] [place], [place] [address] LIPID PANEL, BASIC Collected: 02/12/2018 Status: F Source: [place] 12:17 PM [facility] REPOSITORY TYPE CODE TESTS RESULT OUT OF REFERENCE UNITS RANGE LAB CHOL <200 mg/dL Cholesterol 121 Result Comment: <200 mg/dL, Desirable 200-239 mg/dL, Borderline high >239 mg/dL, High LAB TRIGLY <150 mg/dL Triglyceride 123 Result Comment: <150 mg/dL, Normal 150-199 mg/dL, Borderline high 200-499 mg/dL, High >499 mg/dL, Very high LAB HDL >39 mg/dL HDL-Cholesterol Low 35 Result Comment: 40-59 mg/dL, Acceptable >59 mg/dL, High: Negative risk factor for coronary heart disease <40 mg/dL, Low: Positive risk factor for coronary heart disease LAB LDL <100 mg/dL LDL-Cholesterol 61 Result Comment: <100 mg/dL, Optimal 100-129 mg/dL, Near optimal/above optimal 130-159 mg/dL, Borderline high 160-189 mg/dL, High >189 mg/dL, Very high Secondary prevention optimal LDL Cholesterol levels are recommended to be < 70 mg/dL LAB NONHDL <130 mg/dL Non HDL Cholesterol 86 Result Comment: <130 mg/dL, Optimal 130-159 mg/dL, Near optimal/above optimal 160-189 mg/dL, Borderline high 190-219 mg/dL, High >219 mg/dL, Very high Secondary prevention optimal non HDL Cholesterol levels are recommended to be < 100 mg/dL LAB FT hrs Fasting Time 14 LAB VLDL <30 mg/dL VLDL Cholesterol 25 LAB TCHDL <5.10 TC:HDL Ratio 3.46 LAB LDLHDL <2.54 LDL:HDL Ratio 1.74 Result Comment: Reference: 1. National Cholesterol Education Program ATP III Guideline At-A-Glance Quick Desk Reference: National Heart, Lung, and Blood [place]. National Institutes of Health. 2001: NIH Publication No. 01-3305. 2. An International Atherosclerosis Society position paper: global recommendations for the management of dyslipidemia: executive summary, Atherosclerosis. 2014: 232(2):410-413. Performed By: #### PSA, CMP, LIPB, AHCV1B #### [facility] [email or web address] [place], [place] [address] HEP C AB IA W/CONF Collected: 02/12/2018 Status: F Source: [place] 12:17 PM [facility] REPOSITORY TYPE CODE TESTS RESULT OUT OF REFERENCE UNITS RANGE LAB AHCV Negative Hepatitis C Ab Negative IA Performed By: #### PSA, CMP, LIPB, AHCV1B #### [facility] [address], [place] [address] PROGRESS Observed: 01/24/2018 Status: COMPLETED Source: [place] 8:59 AM [facility] REPOSITORY HNO ID: [id number] Author: Tiffany Hdz Service: (none) Author Type: Freezer Laboratory Technician Type: Progress Notes Filed: 01/24/2018 9:01 AM Note Text: The patient has been identified by name and date of : YES I have scheduled the patient for an appointment on 01/24/2018. The patient will report to the lab prior to the visit. CMP Lipid Hep C screening PSA: Pended Orders None PHMA Documentation 01/24/2018 Opts out of Population Health No Appointments Scheduled Scheduled PCP Appt Tiffany Hdz MA PROGRESS Observed: 01/22/2018 Status: COMPLETED Source: [place] 8:35 AM [facility] REPOSITORY HNO ID: [id number] Author: Tiffany Hdz Service: (none) Author Type: Freezer Laboratory Technician Type: Progress Notes Filed: 01/24/2018 9:01 AM Note Text: [facility] CARE GAP REGISTRY DOCUMENTATION (OUTSIDE TEAMLET) Provider Action/FYI: patient has appointment Needs labs orders PSR Action/FYI: Patient identified by name and date of . Last BP/Labs: Blood Pressure: Last 3 Encounter BP Readings: Date: BP: 02/23/2015 110/80 11/28/2014 130/80 09/08/2014 150/80 Lipids: Cholesterol, Total (mg/dL) Date Value 04/19/2013 194 HDL Cholesterol (mg/dL) Date Value 04/19/2013 40 LDL Cholesterol (mg/dL) Date Value 04/19/2013 128 LDL Chol, Callie (mg/dL) Date Value 04/12/2010 115 10/29/2007 139 Triglyceride (mg/dL) Date Value 04/19/2013 128 HGB A1C: No results found for: HBA1C TSH: No results found for: TSH) ? Patient has the following care gap registry disease diagnosis:CVD ? Patient has the following open care gaps:CVD - Last LDL NOT <= 100mg / dl - Needs Lipid Panel: Last LDL elevated on: ? Last office visit: 11/28/2014 ? Future office visit:Follow-up 3-26-98 Tiffany Hdz MA CNPTOUTREACH Observed: 01/22/2018 Status: COMPLETED Source: [place] 12:00 AM [facility] REPOSITORY Patient Outreach (FAMPWS) ERNESTINABUTCH PACHECO ([id number]) 1945 M Date Time Provider Department 01/22/18 TIFFANY HDZ (CELIO) FAMPWS During your visit today, we recorded the following information about you: Tiffany Hdz MA 01/24/2018 9:01 AM Signed [facility] CARE GAP REGISTRY DOCUMENTATION (OUTSIDE TEAMLET) Provider Action/FYI: patient has appointment Needs labs orders PSR Action/FYI: Patient identified by name and date of . Last BP/Labs: Blood Pressure: Last 3 Encounter BP Readings: Date: BP: 02/23/2015 110/80 11/28/2014 130/80 09/08/2014 150/80 Lipids: Cholesterol, Total (mg/dL) Date Value 04/19/2013 194 HDL Cholesterol (mg/dL) Date Value 04/19/2013 40 LDL Cholesterol (mg/dL) Date Value 04/19/2013 128 LDL Chol, [place] (mg/dL) Date Value 04/12/2010 115 10/29/2007 139 Triglyceride (mg/dL) Date Value 04/19/2013 128 HGB A1C: No results found for: HBA1C TSH: No results found for: TSH) ? Patient has the following care gap registry disease diagnosis:CVD ? Patient has the following open care gaps:CVD - Last LDL NOT ANDlt;= 100mg / dl - Needs Lipid Panel: Last LDL elevated on: ? Last office visit: 11/28/2014 ? Future office visit:Follow-up 02-19-98 CELIO Elmore MA 01/24/2018 9:01 AM Signed The patient has been identified by name and date of : YES I have scheduled the patient for an appointment on 01/24/2018. The patient will report to the lab prior to the visit. CMP Lipid Hep C screening PSA: Pended Orders None PHMA Documentation 01/24/2018 Opts out of [facility] No Appointments Scheduled Scheduled PCP Appt Tiffany Hdz MA Allergies As of Date: 01/22/2018 Noted Allergy Reaction LISINOPRIL 05/10/2010 Comments: cough, sweating LOTENSIN (BENAZEPRIL HCL) 10/29/2007 3 - Cough PENICILLINS 09/30/2005 14 - Other: See Comments Comments: kidney problems Date Reviewed: 02/23/2015 Reviewed by: Santa Jerry LPN - Fully Assessed Reason for Visit: PHMA/Care Gap Outreach [3605] Primary Visit Diagnosis:Essential hypertension, benign [I10] Other Visit Diagnoses:Hyperlipemia, mixed [E78.2] Elevated PSA [R97.20] Other problems related to lifestyle [Z72.89] Order(s):HEP C AB IA W/CONF SCRN [RFMNHD8M] Order #: [id number] FUTURE COMP METABOLIC PANEL [SQCMP] Order #: [id number] FUTURE LIPID PANEL BASIC [SQLIPB] Order #: [id number] FUTURE PSA/PROSTSPECAG DIAG [SQPSA] Order #: [id number] FUTURE Prescriptions as of 01/22/2018 Sig: FUROSEMIDE 40 MG TABLET Take 2 tablets by mouth twice* ASPIRIN 325 MG TABLET,DELAYED* Take 1 tablet by mouth once d* GUAIFENESIN ER 600 MG TABLET,* Take 2 tablets by mouth twice* LOSARTAN 50 MG TABLET Take 50 mg by mouth once tere* AMIODARONE 200 MG TABLET Take by mouth once daily. ALBUTEROL SULFATE HFA 90 MCG/* Inhale 2 Puffs as instructed * CARVEDILOL 12.5 MG TABLET ZINC DUTASTERIDE 0.5 MG CAPSULE Take 0.5 mg by mouth once alyson* POTASSIUM BICARBONATE AND CHL* Take 1 tablet by mouth once d* CLOPIDOGREL 75 MG TABLET Take 1 tablet by mouth once d* PRAVASTATIN 80 MG TABLET Take 1 tablet by mouth once d* NITROGLYCERIN 0.4 MG SUBLINGU* Dissolve 1 tablet under the t* Problem List As Of Date 01/22/2018 Noted Resolved BENIGN HYPERTENSION [I10] INVALID FOR* CAROTID ART OCCL-NO INFARCT [I65.29] INVALID FOR* TOBACCO USE DISORDER [F17.200] INVALID FOR* OBESITY NOS [E66.9] INVALID FOR* HYPERLIPIDEMIA NEC/NOS [E78.5] INVALID FOR* OBST CHRON BRONCHITIS WITH EXAC [J44.1] INVALID FOR* Elevated prostate specific antigen (PSA) [R97.2*INVALID FOR* More... Epididymal cyst [N50.3] INVALID FOR* COPD with exacerbation (HCC) [J44.1] INVALID FOR* Venous insufficiency (chronic) (peripheral) [I8*INVALID FOR* ASHD (arteriosclerotic heart disease) [I25.10] INVALID FOR* History of [place] (myocardial infarction) (HCC) [I2*INVALID FOR* Hyperthyroidism [E05.90] INVALID FOR* Encounter Status:Closed by TIFFANY HDZ on 01/24/18 ALLERGIES ALLERGIES DATE TYPE / NAME / CODE REACTION SEVERITY SOURCE CODE 12/12/2018 Drug phenazopyridine Unknown Unknown [place] Allergy/41 HCl/[id number](RXNORM [facility] [id number]) Repository 12/12/2018 Drug Penicillins/[id number] Unknown Unknown [place] Allergy/41 6(RXNORM) Community [id number]([facility]) Repository 12/12/2018 Drug lisinopril/[id number] Unknown Unknown [place] Allergy/41 (RXNORM) [facility] [id number]([facility]) Repository 09/20/2013 DRUG PHENAZOPYRIDINE HCL RASH [address] [id number]( Repository OMED CT) 05/10/2010 DRUG LISINOPRIL [place] [address] [address] [id number]( Repository OMED CT) 10/29/2007 DRUG BENAZEPRIL HCL COUGH [address] [id number]([facility] OMED CT) 09/30/2005 Drug PENICILLINS OTHER: SEE C [facility] Class/[address] [address]([facility] Repository ED CT) ENCOUNTERS ENCOUNTERS ADMIT/DISCHARGE ACCOUNT ADMITTING ENCOUNTER LOCATION SOURCE NUMBER CLASS 12/19/2018/12/20/19 [id number] Ambulatory [address] [facility] ing:SDCRoom: Repository MS219 12/03/2018 [id number] Ambulatory [facility] Hospital ing:LABSPEC Repository 11/18/2018/11/18/20 [id number] Emergency [address] [facility] Hospital ing:ED Repository 10/12/2018/10/12/20 [id number] Ambulatory BMSBuilding:B [place] [facility] Repository 09/17/2018 [id number] Ambulatory [facility] Hospital ing:LAB Repository 08/27/2018 [id number] Ambulatory [facility] Hospital ing:[facility] Repository 08/27/2018 [id number] Ambulatory BMSBuilding:W [facility] Repository 08/22/2018 [id number] Ambulatory [facility] Hospital ing:RAD Repository 08/22/2018/08/22/20 [id number] Ambulatory BMSBuilding:B [place] 18 [facility] Repository 06/26/2018 [id number] Ambulatory [facility] Hospital ing:LAB Repository 05/13/2018/05/13/20 [id number] Emergency [address] Hospital[facility] Hospital ing:ED Repository 04/09/2018/04/09/20 [id number] Ambulatory BMSBuilding:B [place] 18 [facility] Repository 04/05/2018 [id number] Ambulatory BMSBuilding:B [place] MS.[facility] Hospital Repository 03/16/2018 [id number] Ambulatory [facility] Hospital ing:LAB Repository 03/02/2018/03/05/20 [id number] Ambulatory [address] Repository 02/27/2018/02/28/20 [id number] Ambulatory [address] Repository 02/16/2018/02/20/20 [id number] Ambulatory [address] Repository 02/12/2018/02/13/20 [id number] Ambulatory [address] Repository PAYERS PAYERS ENCOUNTER GUARANTOR PAYER SUBSCRIBER SOURCE 12/19/2018 BUTCH [place] Primary BUTCH Ledesma [id number] [place]: Community DR PRITCHETTPiotrVANESSA, [facility] [id number] [place] [address]Xzr: MEDICAREPolicy Repository Number: (HP) [id number] Date[facility] [place] [address]BI: 12/19/2018 Secondary NOT GIVENUNK [place] Insurance:SELF PAY [facility] Number: Effective Repository Date:2018-12-04 12/03/2018 BUTCH [place] Primary BUTCH Ledesma [id number] [place] Insurance:[place]: Community DR MCDERMOTT, CR[facility]ICAL [facility] CARE [id number] Hospital [place] [address]Hnn: MEDICAREPolicy Repository Number: (HP) [id number] Date: [facility] [place] [address]DI: 12/03/2018 Secondary NOT GIVENUNK [place] Insurance:SELF PAY [facility] Number: Effective Repository Date:2018-12-03 11/18/2018 BUTCH [place] Primary BUTCH Ledesma [id number] [place] Insurance:[place]: Community DR MCDERMOTT, CR[facility]ICAL [facility] CARE [id number] Hospital [place] [address]Qys: MEDICAREPolicy Repository Number: (HP) [id number] Date: [facility] [place] [address]EB: 11/18/2018 Secondary NOT GIVENUNK [place] Insurance:SELF PAY [facility] Number: Effective Repository Date:2018-11-18 10/12/2018 BUTCH [place] Primary BUTCH Ledesma [id number] [place] Insurance:[place]: Community DR MCDERMOTT, CRITICAL [facility] CARE [id number] Hospital [place] [address]Dun: MEDICAREPolicy Repository Number: (HP) [id number] Date: [facility] [place] [address]BB: 10/12/2018 Secondary NOT GIVENUNK [place] Insurance:SELF PAY [facility] Number: Effective Repository Date:2018-10-12 09/17/2018 BUTCH [place] Primary BUTCH Ledesma [id number] [place] Insurance:[place]: Community DR MCDERMOTT, SECURE CARE [id number] Hospital [place] [address]Xjj: MEDICAREPolicy Repository Number: () [id number] [facility] [place] [address]RE: 09/17/2018 Secondary NOT GIVENUNK [place] Insurance:SELF PAY [facility] Number: Effective Repository Date:2018-09-17 08/27/2018 BUTCH [place] Primary BUTCH Ledesma [id number] [place] Insurance:[place]: Community DR MCDERMOTT, SECURE CARE [id number] Hospital [place] [address]Wzu: MEDICAREPolicy Repository Number: () [id number] Date: [facility] [place] [address]FG: 08/27/2018 Secondary NOT GIVENUNK [place] Insurance:SELF PAY Community [facility] Number: Effective Repository Date:2018-08-22 08/27/2018 BUTCH Calvillo Primary BUTCH Ledesma [id number] TAMELA Insurance:[place]: Community DR MCDERMOTT, SECURE CARE [id number] [place] [id number]: MEDICAREPolicy Repository Number: () [id number] Date: [facility] [place] [address]NZ: 08/27/2018 Secondary NOT GIVENUNK [place] Insurance:SELF PAY [facility] Number: Effective Repository Date:2018-08-27 08/22/2018 BUTCH Calvillo Primary BUTCH Ledesma [id number] TAMELA Insurance:[place]OB: Community DR MCDERMOTT, SECURE CARE [id number] [place] [address]Wrz: MEDICAREPolicy Repository Number: (HP) [id number] Date: [place], [place] [address]GH: 08/22/2018 Secondary NOT GIVENUNK [place] Insurance:SELF PAY [facility] Number: Effective Repository Date:2018-08-22 08/22/2018 BUTCH Calvillo Primary BUTCH Ledesma [id number] TAMEL[place] Insurance:[place]: Community DR MCDERMOTT, SECURE CARE [id number] [place] [id number]: MEDICAREPolicy Repository Number: (HP) [id number] Date: [place], [place] [address]VE: 08/22/2018 Secondary NOT GIVENUNK [place] Insurance:SELF PAY [facility] Number: Effective Repository Date:2018-08-22 06/26/2018 BUTCH Calvillo Primary BUTCH Ledesma [id number] TAMELA Insurance:[place]OB: Community DR MCDERMOTT, SECURE CARE [id number] [place] [id number]: MEDICAREPolicy Repository Number: (HP) [id number] Date: [place], [place] [id number]: 06/26/2018 Secondary NOT GIVENUNK [place] Insurance:SELF PAY [facility] Number: Effective Repository Date:2018-06-26 05/13/2018 BUTCH Calvillo Primary BUTCH Ledesma [id number] [place]EL[place] Insurance[place]: Community ANTELMOPiotrVANESSA, SECURE CARE [id number] [facility] [place] [id number]: MEDICAREPolicy Repository [phone] Number: [phone] (HP) [id number] Date: Piotr MEADOWS [id number]: 05/13/2018 Secondary NOT GIVENUNK [place] Insurance:SELF PAY Community [facility] Number: Effective Repository Date:2018-05-13 04/09/2018 BUTCH Calvillo Primary BUTCH Ledesma [id number] [place] Insurance:[place]: Community DR[address] SECURE CARE [id number] [facility] MED[place] , [place] [address]Omo: Number: [id number] () Date: Piotr [place]OWS [id number]: 04/09/2018 Secondary NOT GIVENUNK [place] Insurance:SELF PAY [facility] Number: Effective Repository Date:2017-11-16 04/05/2018 Butch Calvillo Primary Butch Ledesma [id number] [place] Insurance:[place] GwinDOB: Community Dr ExtSeantanner, [facility] C[facility] [id number] [place] [address]Fir: MEDICAREPolicy Repository Number: () [id number] Date: [facility] [place] [address]KN: 04/05/2018 Secondary NOT GIVENUNK [place] Insurance:SELF PAY [facility] Number: Effective Repository Date:2018-04-05 03/16/2018 Butch Calvillo Primary Butch Ledesma [id number] [place] Insurance:[place] GwinDOB: Community Dr Pritchettvanessa, [facility] CARE [id number] [place] [address]Vdy: MEDICAREPolicy Repository Number: () [id number] Date: [facility] Piotr JEAN [id number]: 03/16/2018 Secondary NOT GIVENUNK [place] Insurance:SELF PAY [facility] Number: Effective Repository Date:2018-03-16
== END 2018-12-20 15:14 | disposition home or self-care (01) ==
LOC: SDC 10:09 → AC 10:11 → MS2 13:18
PROVIDERS: Anesthesiology; Family Provider Family Medicine; PCP Family Medicine; Referring Provider Urology; Visit Provider Urology
PROC: (CPT 52630; principal; 2018-12-19 12:10)
DX: N40.1 Benign prostatic hyperplasia with lower urinary tract symptoms (principal); N41.1 Chronic prostatitis; N45.2 Orchitis; I48.91 Unspecified atrial fibrillation; E66.9 Obesity, unspecified; I25.2 Old myocardial infarction; I11.9 Hypertensive heart disease without heart failure; I11.0 Hypertensive heart disease with heart failure; I50.9 Heart failure, unspecified; F17.200 Nicotine dependence, unspecified, uncomplicated; Z95.5 Presence of coronary angioplasty implant and graft; Z68.36 Body mass index [BMI] 36.0-36.9, adult; Z87.440 Personal history of urinary (tract) infections; Z79.82 Long term (current) use of aspirin; Z79.899 Other long term (current) drug therapy
CPT/HCPCS: 52630; 36415; 80048; 80076; 84132; 85027; 85610; 85730; 88305; J7030; J7120; J2405

== ENCOUNTER → 2019-04-24 | Outpatient (CLI) | payer MEDICARE, SELFPAY ==
[2019-04-18 14:33] VITALS: BMI 36.4
[2019-04-24 14:19] LABS: AST(SGOT) 11 U/L (15-37); Alanine Aminotransfer ALT/SGPT 16 U/L (16-61); Albumin, Serum 3.6 g/dL (3.2-5.0); Alkaline Phosphatase 61 U/L (45-117); Bilirubin, Direct 0.23 mg/dL (0.00-0.30); Cholesterol 165 mg/dL (200); Globulin 3.7 g/dL (2.2-4.2); High Density Lipoprotein 34 mg/dL; Protein, Total 7.3 g/dL (6.4-8.2); Triglycerides 139 mg/dL; Very Low Density Lipoprotein 28 mg/dL (5-40)
== END | disposition home or self-care (01) ==
PROVIDERS: Family Provider Family Medicine; PCP Family Medicine; Referring Provider Internal Medicine Cardiovascular Disease; Visit Provider Internal Medicine Cardiovascular Disease
DX: E78.5 Hyperlipidemia, unspecified (principal)
CPT/HCPCS: 36415; 80061; 80076

== ENCOUNTER → 2021-03-18 15:21 | Outpatient (CLI) | payer MEDICARE, SELFPAY ==
[2021-03-17 11:30] VITALS: BMI 35.5
[2021-03-18 16:15] LABS: AST(SGOT) 14 U/L (15-37); Alanine Aminotransfer ALT/SGPT 26 U/L (16-61); Albumin, Serum 3.8 g/dL (3.2-5.0); Alkaline Phosphatase 77 U/L (45-117); Bilirubin, Direct 0.43 mg/dL (0.00-0.30); Cholesterol 148 mg/dL (200); Globulin 3.9 g/dL (2.2-4.2); High Density Lipoprotein 49 mg/dL; Protein, Total 7.7 g/dL (6.4-8.2); Triglycerides 65 mg/dL; Very Low Density Lipoprotein 13 mg/dL (5-40)
== END ==
PROVIDERS: PCP Family Medicine; Referring Provider Internal Medicine Cardiovascular Disease; Visit Provider Internal Medicine Cardiovascular Disease
DX: E78.00 Pure hypercholesterolemia, unspecified (principal)
CPT/HCPCS: 36415; 80061; 80076

== ENCOUNTER → 2021-09-30 08:31 | Outpatient (CLI) | payer MEDICARE, SELFPAY ==
[2021-09-30 09:27] LABS: PSA,Total- Diagnostic 1.99 ng/mL (0.0-4.0)
== END ==
PROVIDERS: PCP Physician Assistant; Referring Provider Urology; Visit Provider Urology
DX: N40.1 Benign prostatic hyperplasia with lower urinary tract symptoms (principal)
CPT/HCPCS: 36415; 84153

== ENCOUNTER → 2023-05-10 | Outpatient (CLI) | payer MEDICARE, SELFPAY ==
[2023-05-10 14:04] LABS: AST(SGOT) 15 U/L (15-37); Alanine Aminotransfer ALT/SGPT 22 U/L (16-61); Albumin, Serum 3.6 g/dL (3.2-5.0); Alkaline Phosphatase 70 U/L (45-117); Bilirubin, Direct 0.39 mg/dL (0.00-0.30); Cholesterol 141 mg/dL (200); Globulin 3.7 g/dL (2.2-4.2); High Density Lipoprotein 53 mg/dL; Protein, Total 7.3 g/dL (6.4-8.2); Triglycerides 61 mg/dL; Very Low Density Lipoprotein 12 mg/dL (5-40)
== END | disposition home or self-care (01) ==
LOC: LAB 12:58
PROVIDERS: PCP Physician Assistant; Referring Provider Nurse Practitioner Family; Visit Provider Nurse Practitioner Family
DX: I25.10 Atherosclerotic heart disease of native coronary artery without angina pectoris (principal); I48.0 Paroxysmal atrial fibrillation; I10 Essential (primary) hypertension; E78.5 Hyperlipidemia, unspecified; Z95.5 Presence of coronary angioplasty implant and graft
CPT/HCPCS: 36415; 80061; 80076

== ENCOUNTER → 2023-10-31 | Outpatient (CLI) | payer MEDICARE, SELFPAY ==
[2023-10-31 13:05] LABS: PSA,Total - Annual Screen 0.72 ng/mL (0.00-4.00)
== END | disposition home or self-care (01) ==
LOC: LAB 11:43
PROVIDERS: PCP Physician Assistant; Referring Provider Urology; Visit Provider Urology
DX: Z12.5 Encounter for screening for malignant neoplasm of prostate (principal)
CPT/HCPCS: 36415; 84153; G0103

== ENCOUNTER → 2024-08-08 | Outpatient (CLI) | payer MEDICARE, SELFPAY ==
--- NOTE | 2024-08-08 12:59 | ECHOD_ITS ---
Reason For Study: Afib/Flutter Procedure This was a 2D Doppler, Color Flow transthoracic echocardiogram. Exam performed in department. Left Ventricle Normal LV size. Left ventricular systolic function is normal. The left ventricular ejection fraction is 65 %. No regional wall motion abnormalities noted. Right Ventricle Normal RV size. Normal systolic function. Atria The left atrium is mildly enlarged. Normal right atrium. Mitral Valve Normal mitral valve. Tricuspid Valve Normal tricuspid valve. Moderate (2+) tricuspid valve insufficiency. Pulmonary artery systolic pressure is 64 mmHg. Moderate pulmonary hypertension. Aortic Valve Trisinus/trileaflet aortic valve. Pulmonic Valve Normal pulmonic valve. Great Vessels Normal aortic root. The pulmonary artery is normal size. Normal inferior vena cava. Pericardium/Pleural No pericardial effusion. MMode/2D Measurements & Calculations LVIDd: 4.3 cm IVSd: 0.85 cm LAV(MOD-bp): 71.2 ml LVIDs: 3.3 cm LVPWd: 0.92 cm LAV(MOD-bp) Indexed: 36.5 ml/m2 RVDd: 3.7 cm FS: 24.8 % LAV(MOD-sp2): 52.6 ml LAV(MOD-sp4): 78.4 ml SV(MOD-sp4): 46.6 ml SV(sp4-el): 50.3 ml LVAd ap4: 25.8 cm2 LVLd ap4: 7.6 cm EDV(MOD-sp4): 72.1 ml EDV(sp4-el): 74.5 ml LVAs ap4: 13.6 cm2 LVLs ap4: 6.5 cm ESV(MOD-sp4): 25.5 ml ESV(sp4-el): 24.1 ml EF(MOD-sp4): 64.7 % EF(sp4-el): 67.6 % Ao sinus diam: 3.5 cm LA A4 area: 25.3 cm2 RA A4 area: 18.7 cm2 TAPSE: 1.6 cm Doppler Measurements & Calculations MV E max maged: 112.8 cm/sec MV V2 max: 123.1 cm/sec Ao V2 max: 106.4 cm/sec MV max P.1 mmHg Ao max P.5 mmHg MV V2 mean: 61.2 cm/sec Ao V2 mean: 70.9 cm/sec MV mean P.9 mmHg Ao mean P.3 mmHg MV V2 VTI: 29.6 cm Ao V2 VTI: 24.6 cm AV (velocity ratio): 0.63 LV V1 max: 67.0 cm/sec TR max maged: 386.4 cm/sec LV V1 max P.8 mmHg TR max P.7 mmHg LV V1 mean P.99 mmHg LV V1 mean: 46.9 cm/sec LV V1 VTI: 15.6 cm ECHO/Echo Complete Interpretation Summary Normal LV size. Left ventricular systolic function is normal. The left ventricular ejection fraction is 65 %. Pulmonary artery systolic pressure is 64 mmHg. Moderate pulmonary hypertension. The left atrium is mildly enlarged. Ordering Physician: Jed Lopez Referring Physician: Jed Lopez Performed By: Yomi Andrews RCS
== END | disposition home or self-care (01) ==
PROVIDERS: PCP Physician Assistant; Referring Provider Internal Medicine Cardiovascular Disease; Visit Provider Internal Medicine Cardiovascular Disease
DX: I48.0 Paroxysmal atrial fibrillation (principal)
CPT/HCPCS: 93306

== ENCOUNTER → 2024-08-13 | Outpatient (CLI) | payer MEDICARE, SELFPAY ==
[2024-08-13 12:22] LABS: Absolute Lymphocyte Count 0.96 X10^3/uL (0.83-4.51); Absolute Neutrophil Count 2.5 X10^3/uL (2.0-7.7); Basophil# 0.06 X10^3/uL; Basophil% 1.4 % (0-1); Eosinophils% 2.4 % (0-5); Hematocrit 40.5 % (40-54); Hemoglobin 13.4 g/dL (13.0-16.5); Lymphocyte # 0.96 X10^3/ul (0.83-4.51); Lymphocyte % 22.7 % (19-41); Mean Corp Hgb Conc 33.1 g/dL (32-36); Mean Corpuscular Hgb 31.4 pg (27.0-32.0); Mean Corpuscular Volume 94.8 fL (80-94); Mean Platelet Vol. 10.7 fl (6.2-12.0); Monocyte# 0.58 X10^3/uL; Monocyte% 13.7 % (0-10); NRBC Flagged by Analyzer 0 % (0-5); Neutrophil # 2.51 X10^3/uL (2.7-7.7); Neutrophil % 59.3 % (47-70); Platelet Count 190 K/mm3 (150-450); RBC Distribution Width CV 14.7 % (11.6-14.6); RBC Distribution Width SD 51.5 fl (35.1-43.9); Red Blood Count 4.27 M/mm3 (4.6-6.2); White Blood Count 4.2 K/mm3 (4.4-11.0)
[2024-08-13 13:26] LABS: AST(SGOT) 10 U/L (15-37); Alanine Aminotransfer ALT/SGPT 12 U/L (16-61); Albumin, Serum 3.5 g/dL (3.2-5.0); Alkaline Phosphatase 67 U/L (45-117); Anion Gap 5 (5-15); BUN 19 mg/dL (7-18); BUN/Creat Ratio 14.4 RATIO (10-20); Calcium,Total 9.3 mg/dL (8.5-10.1); Chloride 103 mmol/L (98-107); Cholesterol 143 mg/dL (200); Creatinine, Serum 1.32 mg/dL (0.70-1.30); EST Glomerular Filtration Rate 56 mL/min (>60); Est Glom Filt Rate - Afr Amer 67 mL/min (>60); Free T3 2.9 pg/mL (2.18-3.98); Globulin 3.6 g/dL (2.2-4.2); Glucose 94 mg/dL (74-106); High Density Lipoprotein 56 mg/dL; Potassium 4.2 mmol/L (3.5-5.1); Protein, Total 7.1 g/dL (6.4-8.2); Sodium Level 137 mmol/L (136-145); T4 Free Direct 1.21 ng/dL (0.76-1.46); Thyroid Stim Hormone (TSH) 0.634 uIU/mL (0.358-3.740); Triglycerides 60 mg/dL; Very Low Density Lipoprotein 12 mg/dL (5-40)
== END | disposition home or self-care (01) ==
LOC: LAB 11:00
PROVIDERS: PCP Physician Assistant; Referring Provider Physician Assistant Medical; Visit Provider Physician Assistant Medical
DX: E05.90 Thyrotoxicosis, unspecified without thyrotoxic crisis or storm (principal); I25.10 Atherosclerotic heart disease of native coronary artery without angina pectoris; R60.9 Edema, unspecified; Z95.5 Presence of coronary angioplasty implant and graft; E78.5 Hyperlipidemia, unspecified
CPT/HCPCS: 36415; 80053; 80061; 84439; 84443; 84481; 85025

== ENCOUNTER → 2024-08-26 | Outpatient (CLI) | payer MEDICARE, SELFPAY ==
[2024-08-26 14:38] LABS: Anion Gap 7 (5-15); BUN 17 mg/dL (7-18); BUN/Creat Ratio 12.9 RATIO (10-20); Calcium,Total 9.3 mg/dL (8.5-10.1); Chloride 101 mmol/L (98-107); Creatinine, Serum 1.32 mg/dL (0.70-1.30); EST Glomerular Filtration Rate 56 mL/min (>60); Est Glom Filt Rate - Afr Amer 67 mL/min (>60); Glucose 107 mg/dL (74-106); Potassium 3.6 mmol/L (3.5-5.1); Sodium Level 138 mmol/L (136-145)
== END | disposition home or self-care (01) ==
LOC: LAB 13:39
PROVIDERS: PCP Physician Assistant; Referring Provider Physician Assistant Medical; Visit Provider Physician Assistant Medical
DX: I50.22 Chronic systolic (congestive) heart failure (principal)
CPT/HCPCS: 36415; 80048

== ENCOUNTER → 2025-03-04 | Outpatient (CLI) | payer MEDICARE, SELFPAY ==
[2025-03-04 14:11] LABS: Anion Gap 11 (5-15); BUN 16 mg/dL (4-19); BUN/Creat Ratio 13.3 RATIO (10-20); Calcium,Total 9.5 mg/dL (7.6-11.0); Carbon Dioxide 27.5 mmol/L (21.0-32.0); Chloride 102 mmol/L (98-108); Creatinine, Serum 1.17 mg/dL (0.70-1.20); EST Glomerular Filtration Rate 64 (>60); Glucose 108 mg/dL (70-99); Potassium 4.2 mmol/L (3.3-5.1); Sodium Level 140 mmol/L (133-145)
== END | disposition home or self-care (01) ==
PROVIDERS: PCP Physician Assistant; Referring Provider Nurse Practitioner Family; Visit Provider Nurse Practitioner Family
DX: I11.0 Hypertensive heart disease with heart failure (principal); I50.22 Chronic systolic (congestive) heart failure; Z95.5 Presence of coronary angioplasty implant and graft
CPT/HCPCS: 36415; 80048

== ENCOUNTER → 2025-03-18 | Outpatient (CLI) | payer MEDICARE, SELFPAY ==
[2025-03-18 11:45] LABS: Anion Gap 11 (5-15); BUN 25 mg/dL (4-19); BUN/Creat Ratio 15.6 RATIO (10-20); Calcium,Total 9.6 mg/dL (7.6-11.0); Carbon Dioxide 28.9 mmol/L (21.0-32.0); Chloride 100 mmol/L (98-108); Creatinine, Serum 1.59 mg/dL (0.70-1.20); EST Glomerular Filtration Rate 44 (>60); Glucose 126 mg/dL (70-99); Potassium 4.1 mmol/L (3.3-5.1); Sodium Level 141 mmol/L (133-145)
== END | disposition home or self-care (01) ==
LOC: LAB 09:54
PROVIDERS: PCP Family Medicine; Referring Provider Nurse Practitioner Family; Visit Provider Nurse Practitioner Family
DX: I11.0 Hypertensive heart disease with heart failure (principal); I50.22 Chronic systolic (congestive) heart failure; I48.0 Paroxysmal atrial fibrillation; I25.10 Atherosclerotic heart disease of native coronary artery without angina pectoris
CPT/HCPCS: 36415; 80048

== ENCOUNTER → 2025-06-17 | Outpatient (CLI) | payer MEDICARE, SELFPAY ==
[2025-06-17 11:56] LABS: Anion Gap 11 (5-15); BUN 19 mg/dL (4-19); BUN/Creat Ratio 12.7 RATIO (10-20); Calcium,Total 9.5 mg/dL (7.6-11.0); Carbon Dioxide 27.2 mmol/L (21.0-32.0); Chloride 99 mmol/L (98-108); Glucose 98 mg/dL (70-99); Potassium 4.3 mmol/L (3.3-5.1)
== END | disposition home or self-care (01) ==
LOC: LAB 10:15
PROVIDERS: PCP Family Medicine; Referring Provider Nurse Practitioner Family; Visit Provider Nurse Practitioner Family
DX: I10 Essential (primary) hypertension (principal); I25.10 Atherosclerotic heart disease of native coronary artery without angina pectoris; R60.9 Edema, unspecified
CPT/HCPCS: 36415; 80048

== ENCOUNTER → 2025-09-30 | Outpatient (CLI) | payer MEDICARE, SELFPAY ==
[2025-09-30 15:16] LABS: Mucous, Urine 0 SEEN /hpf (<or=2+)
[2025-09-30 16:16] LABS: Color, Urine Yellow (Yellow); Glucose, Dipstick Normal (Normal); Ketone-Dipstick Negative (Negative); Leukocyte Esterase-Dipstick 100 /ul (Negative); Nitrite-Dipstick Positive (Negative); Occult Blood-Urine 10 /ul (Negative); Protein-Dipstick 30 mg/dl (Negative); Specific Gravity, Urine 1.015 (1.002-1.030); Urine Bilirubin Dipstick Negative (Negative)
[2025-09-30 16:19] LABS: Anion Gap 10 (5-15); BUN 25 mg/dL (4-19); BUN/Creat Ratio 17.6 RATIO (10-20); Calcium,Total 8.8 mg/dL (7.6-11.0); Carbon Dioxide 27.7 mmol/L (21.0-32.0); Chloride 98 mmol/L (98-108); Glucose 111 mg/dL (70-99); Potassium 3.8 mmol/L (3.3-5.1); Pro- Brain NATRIURETIC PEPTIDE 2208 pg/mL (<=1800)
[2025-09-30 16:20] LABS: Hematocrit 45.2 % (40-54); Hemoglobin 15.1 g/dL (13.0-16.5); Immature Granulocytes Count 0.010 X10^3/uL (0.0-0.0); Mean Corp Hgb Conc 33.4 g/dL (32-36); Mean Corpuscular Volume 95.6 fL (80-94); Mean Platelet Vol. 10.6 fl (6.2-12.0); NRBC Flagged by Analyzer 0 % (0-5); Platelet Count 214 K/mm3 (150-450); RBC Distribution Width CV 14.3 % (11.6-14.6); RBC Distribution Width SD 50.4 fl (35.1-43.9); Red Blood Count 4.73 M/mm3 (4.6-6.2); White Blood Count 5.1 K/mm3 (4.4-11.0)
[2025-09-30 16:47] LABS: Red Blood Cells-Urine 0-5 SEEN /hpf (0-5); Squamous Epithelial Cells - UA 0-5 SEEN /hpf (0-5)
== END | disposition home or self-care (01) ==
LOC: LAB 15:01
PROVIDERS: PCP Family Medicine; Referring Provider Nurse Practitioner Gerontology; Visit Provider Nurse Practitioner Gerontology
DX: R42 Dizziness and giddiness (principal); I50.22 Chronic systolic (congestive) heart failure; R53.1 Weakness; R63.4 Abnormal weight loss; R53.83 Other fatigue; Z51.81 Encounter for therapeutic drug level monitoring; Z79.899 Other long term (current) drug therapy; R35.0 Frequency of micturition; R41.0 Disorientation, unspecified
CPT/HCPCS: 36415; 80048; 81001; 83880; 84443; 85025

== ENCOUNTER → 2025-10-21 | Outpatient (CLI) | payer MEDICARE, SELFPAY ==
[2025-10-21 11:27] LABS: Mucous, Urine 0 SEEN /hpf (<or=2+); Red Blood Cells-Urine 0 SEEN /hpf (0-5)
[2025-10-21 12:27] LABS: Anion Gap 11 (5-15); BUN 21 mg/dL (4-19); BUN/Creat Ratio 18.1 RATIO (10-20); Calcium,Total 9.3 mg/dL (7.6-11.0); Carbon Dioxide 29.7 mmol/L (21.0-32.0); Chloride 99 mmol/L (98-108); Glucose 111 mg/dL (70-99); Potassium 3.6 mmol/L (3.3-5.1); Pro- Brain NATRIURETIC PEPTIDE 2804 pg/mL (<=1800)
[2025-10-21 13:10] LABS: Color, Urine Yellow (Yellow); Glucose, Dipstick Normal (Normal); Ketone-Dipstick Negative (Negative); Leukocyte Esterase-Dipstick Negative /ul (Negative); Nitrite-Dipstick Negative (Negative); Occult Blood-Urine Negative /ul (Negative); Protein-Dipstick Negative (Negative); Specific Gravity, Urine 1.015 (1.002-1.030); Urine Bilirubin Dipstick Negative (Negative)
[2025-10-21 13:18] LABS: Squamous Epithelial Cells - UA 5-10 SEEN /hpf (0-5)
== END | disposition home or self-care (01) ==
LOC: LAB 11:18
PROVIDERS: PCP Family Medicine; Referring Provider Nurse Practitioner Family; Visit Provider Nurse Practitioner Family
DX: I48.0 Paroxysmal atrial fibrillation (principal); I11.0 Hypertensive heart disease with heart failure; I50.22 Chronic systolic (congestive) heart failure; R41.0 Disorientation, unspecified; R35.0 Frequency of micturition; R53.1 Weakness; Z95.5 Presence of coronary angioplasty implant and graft
CPT/HCPCS: 36415; 80048; 81001; 83880; 87086